=== PATIENT | male | born 1950 ===

== ENCOUNTER 2016-07-21 16:34 | Emergency (ER) | payer BC, MEDICARE ==
[2016-07-21] MEDS ORDERED: KETOROLAC 60 MG/2 ML VIAL IM STA (17:13)
[2016-07-21] MEDS ORDERED: HYDROmorphone 1 MG/ML 1 ML SYRINGE IM STA (17:15)
--- NOTE | 2016-07-21 17:18 | ED ---
Back Pain HPI - General Chief Complaint: Back Pain/Injury Stated Complaint: Altered Mental Status Time Seen by Provider: 07/21/16 17:04 Source: patient Limitations: no limitations - History of Present Illness Initial Comments: Patient was at his pain management doctor's office today and he fell he denies any head injury he denies any other injury to the upper or lower extremities he does have a chronic back pain and now Dr. mathews has been managing his pain. There was some dosage adjustment of his pain medication which is not quite adequately helping his pain this is according to the patient. He denies any chest pain no shortness of breath he is alert oriented he has been drinking today to manage his pain with the alcohol he denies any weakness of upper or lower extremity denies any loss of bladder or bowel control area of system is a part for back pain is negative. He does have a history of TIA or CVAs and history of chest pain - Related Data Home Medications Medication Instructions Recorded Confirmed DULoxetine HCL [Cymbalta] 30 mg PO BID 07/30/14 07/21/16 Gabapentin [Neurontin] 300 mg PO BID@0800,1200 07/30/14 07/21/16 levETIRAcetam 1,500 mg PO BID 07/30/14 07/21/16 metFORMIN HCL [Glucophage] 250 mg PO DAILY 07/30/14 07/21/16 Dipyridamole-Aspirin 200-25 mg 1 tab PO BID 07/01/15 07/21/16 [Aggrenox 25MG -200MG] Hydrocodone/Acetaminophen 1 tab PO TID PRN 07/01/15 07/21/16 [Hydrocodon-Acetaminophn 10-325] Docusate [Colace] 200 mg PO HS 05/31/16 07/21/16 Gabapentin [Neurontin] 600 mg PO HS 05/31/16 07/21/16 [place]-3 Fatty Acids/Fish Oil [Fish 1 cap PO TID 05/31/16 07/21/16 Oil 1,000 mg Softgel] Potassium Gluconate 99 mg PO DAILY 05/31/16 07/21/16 traMADol HCL [Ultram] 50 mg PO Q8H PRN 07/21/16 07/21/16 Allergies Allergy/AdvReac Type Severity Reaction Status Date / Time No Known Allergies Allergy Verified 07/21/16 17:27 Review of Systems ROS Statement: Those systems with pertinent positive or pertinent negative responses have been documented in the HPI. ROS Other: All systems not noted in ROS Statement are negative. Past Medical History Past Medical History: CVA/TIA, Diabetes Mellitus, GERD/Reflux Additional Past Medical History / Comment(s): HX OF CVA WITH LEFT ARM WEAKNESS, HX OF TIA'S. STATES HE HAS NO HX OF SEIZURES BUT THEY STARTED HIM ON SEIZURE MEDS., CONSTIPATION. History of Any Multi-Drug Resistant Organisms: None Reported Past Surgical History: Back Surgery Additional Past Surgical History / Comment(s): BACK SURGERY WITH PINS. Past Psychological History: No Psychological Hx Reported, Depression Smoking Status: Current every day smoker Past Alcohol Use History: None Reported Additional Past Alcohol Use History / Comment(s): STATES 1 SHOT TEQUILA IN AM AND A GLASS OF WINE AT NIGHT. SMOKES 1-2 CIGARS DAILY. Past Drug Use History: Marijuana Additional Drug Use History / Comment(s): MEDICAL MARIJUANA DAILY. - Past Family History Mother Family Medical History: CVA/TIA, Diabetes Mellitus Father Family Medical History: Diabetes Mellitus, Myocardial Infarction ([place]) General Exam - General Exam Comments Initial Comments: General: The patient is awake and alert, in no severe distress from his back pain actually is crying with the pain in his back Skin: Skin is warm and dry and no rashes or lesions are noted. Eye: Pupils are equal, round and reactive to light, extra-ocular movements are intact; there is normal conjunctiva bilaterally. Ears, nose, mouth and throat: There are moist mucous membranes and no oral lesions. Neck: The neck is supple, there is no tenderness or JVD. Cardiovascular: There is a regular rate and rhythm. No murmur, rub or gallop is appreciated. Respiratory: To auscultation bilateral, no wheezing no rhonchi no distress respiratory teixeira noticed Gastrointestinal: Soft, non-distended, non-tender abdomen without masses or organomegaly noted. There is no rebound or guarding present. Bowel sounds are unremarkable. Back: There is tenderness in the lower lumbar region, he said it's chronic Musculoskeletal: Normal ROM, no tenderness, There is no pedal edema. There is no calf tenderness or swelling. No cords were appreciated. Neurological: CN II-XII intact, Cranial nerves III through XII are intact. There are no obvious motor or sensory deficits. Coordination appears grossly intact. Speech is normal. Psychiatric: Cooperative, appropriate mood & affect, normal judgment. He denies any suicidal or homicidal ideation Limitations: no limitations Course Vital Signs 07/21/16 16:42 Temperature 97.8 F Pulse Rate 78 Respiratory 20 Rate Blood Pressure 120/68 O2 Sat by Pulse 98 Oximetry At 1850 on his labs were reviewed, his head CT is normal CBC is normal, BS metabolic panel is normal ALT and AST are slightly elevated head CT is normal and does show some sinusitis Medical Decision Making - Lab Data Result diagrams: 07/21/16 17:25 07/21/16 17:25 Lab Results 07/21/16 07/21/16 Range/Units 17:25 17:25 WBC 7.5 (3.8-10.6) k/uL RBC 4.96 (4.30-5.90) m/uL Hgb 15.0 (13.0-17.5) gm/dL Hct 44.7 (39.0-53.0) % MCV 90.2 (80.0-100.0) fL MCH 30.1 (25.0-35.0) pg MCHC 33.4 (31.0-37.0) g/dL RDW 13.4 (11.5-15.5) % Plt Count 303 (150-450) k/uL Neutrophils % 50 % Lymphocytes % 38 % Monocytes % 5 % Eosinophils % 2 % Basophils % 1 % Neutrophils # 3.8 (1.3-7.7) k/uL Lymphocytes # 2.8 (1.0-4.8) k/uL Monocytes # 0.4 (0-1.0) k/uL Eosinophils # 0.2 (0-0.7) k/uL Basophils # 0.0 (0-0.2) k/uL Sodium 142 (137-145) mmol/L Potassium 4.2 (3.5-5.1) mmol/L Chloride 103 (98-107) mmol/L Carbon Dioxide 21 L (22-30) mmol/L Anion Gap 18 mmol/L BUN 13 (9-20) mg/dL Creatinine 0.66 (0.66-1.25) mg/dL Est GFR (MDRD) Af Amer >60 (>60 ml/min/1.73 sqM) Est GFR (MDRD) Non-Af >60 (>60 ml/min/1.73 sqM) Glucose 199 H (74-99) mg/dL Calcium 9.4 (8.4-10.2) mg/dL Total Bilirubin 0.5 (0.2-1.3) mg/dL AST 85 H (17-59) U/L ALT 138 H (21-72) U/L Alkaline Phosphatase 89 (38-126) U/L Total Protein 7.8 (6.3-8.2) g/dL Albumin 4.7 (3.5-5.0) g/dL Disposition Clinical Impression: Chronic back pain Disposition: HOME SELF-CARE Instructions: Chronic Back Pain (ED) Additional Instructions: He is advised to follow with the primary care physician for chronic pain management, advised he could take Tylenol 1 g by mouth every 6 or Advil for and milligrams every 6 and milligrams by mouth 3 times a day as needed
[2016-07-21] MEDS ORDERED: HYDROmorphone 1 MG/ML 1 ML SYRINGE IVP STA (17:32)
[2016-07-21] MEDS ORDERED: KETOROLAC 30 MG/ML 1 ML VIAL IVP STA (17:33)
[2016-07-21 17:36] LABS: Basophils % (A) 1 %; CH 30.6; CHCM 34.1; Eosinophils # (A) 0.2 k/uL (0-0.7); Eosinophils % (A) 2 %; HCT 44.7 % (39.0-53.0); Luc # (Auto) 0.27; Luc % (Auto) 4; Lymphocytes # (A) 2.8 k/uL (1.0-4.8); Lymphocytes % (A) 38 %; MCH 30.1 pg (25.0-35.0); MCHC 33.4 g/dL (31.0-37.0); MCV 90.2 fL (80.0-100.0); Mean Platelet Volume 6.3; Monocytes # (A) 0.4 k/uL (0-1.0); Monocytes % (A) 5 %; Neutrophils # (A) 3.8 k/uL (1.3-7.7); Neutrophils % (A) 50 %; RBC 4.96 m/uL (4.30-5.90); RDW 13.4 % (11.5-15.5); WBC 7.5 k/uL (3.8-10.6); WBC (Perox) 7.68
[2016-07-21 17:55] LABS: ALT 138 U/L (21-72); AST 85 U/L (17-59); Alkaline Phosphatase 89 U/L (38-126); Anion Gap 18 mmol/L; Blood Urea Nitrogen 13 mg/dL (9-20); Calcium 9.4 mg/dL (8.4-10.2); Carbon Dioxide 21 mmol/L (22-30); Chloride 103 mmol/L (98-107); Glucose 199 mg/dL (74-99); Non-African American GFR(MDRD) >60 (>60 ml/min/1.73 sqM); Potassium 4.2 mmol/L (3.5-5.1); Sodium 142 mmol/L (137-145); Total Bilirubin 0.5 mg/dL (0.2-1.3); Total Protein 7.8 g/dL (6.3-8.2)
--- NOTE | 2016-07-21 18:24 | CT ---
EXAMINATION TYPE: CT brain wo con DATE OF EXAM: 07/21/2016 5:53 PM COMPARISON: June 02, 2016 HISTORY: Pain CT DLP: 1163 mGycm Automated exposure control for dose reduction was used. FINDINGS: There is no acute intracranial hemorrhage, mass effect, or midline shift identified. The ventricles and sulci are within normal limits in size. There are mild inflammatory changes seen within the bilateral maxillary sinuses, ethmoid sinuses, and frontal sinuses and mastoid sinus air cells and middle ear cavities are clear bilaterally. Sphenoid sinuses clear. IMPRESSION: NO ACUTE INTRACRANIAL PROCESS. MILD INFLAMMATORY CHANGES WITHIN THE MAXILLARY, ETHMOID, AND FRONTAL SINUSES.
--- NOTE | 2016-07-21 18:59 | XR ---
EXAMINATION TYPE: XR lumbar spine 2 or 3V DATE OF EXAM: 07/21/2016 6:00 PM COMPARISON: 12/25/2009 HISTORY: Back pain for months TECHNIQUE: 3 views FINDINGS: Negative for fracture or malalignment or acute process. Orthopedic hardware appears intact at the lumbosacral junction. Multilevel moderate degenerative facet osteoarthritis changes are apprec iated with multifocal mild and moderate degenerative disc changes noted. IMPRESSION: No acute radiographic process, with overall similar radiographic appearance when compared to the prior study. However, mild progression of the degenerative spondylosis changes appreciated.
[2016-07-21 19:03] VITALS: BP 113/67; PULSE 72; RESP 18; TEMP 97.4
== END 2016-07-21 19:03 | disposition home or self-care (01) ==
LOC: EC 16:34 → SUPCPDRO 16:34 → EC 19:03
DX: G89.29 Other chronic pain (principal); M54.9 Dorsalgia, unspecified; F32.9 Major depressive disorder, single episode, unspecified; E11.9 Type 2 diabetes mellitus without complications; R07.9 Chest pain, unspecified; Z86.73 Personal history of transient ischemic attack (TIA), and cerebral infarction without residual deficits; F12.90 Cannabis use, unspecified, uncomplicated; K59.00 Constipation, unspecified; K21.9 Gastro-esophageal reflux disease without esophagitis; F17.200 Nicotine dependence, unspecified, uncomplicated; Z79.84 Long term (current) use of oral hypoglycemic drugs; Z79.82 Long term (current) use of aspirin; W19.XXXA Unspecified fall, initial encounter
CPT/HCPCS: 82075; 36415; 80053; 85025; 72100; 70450; 96374; 96375; 99284; J1885; J1170

== ENCOUNTER → 2016-09-21 | Outpatient (CLI) | payer BC, MEDICARE ==
[2016-09-21 18:22] LABS: Blood Urea Nitrogen 23 mg/dL (9-20); Non-African American GFR(MDRD) >60 (>60 ml/min/1.73 sqM)
--- NOTE | 2016-09-21 21:55 | MR ---
EXAMINATION TYPE: MR lumbar spine wo/w con DATE OF EXAM: 09/21/2016 7:42 PM COMPARISON: 08/05/2015 HISTORY: 65-year-old male with low back pain Technique: Multiplanar, multisequence images of the lumbar spine were obtained before and after admin istration of 20 mL intravenous MultiHance gadolinium contrast. FINDINGS: Vertebral body heights are preserved and alignment is maintained. No suspicious bone marrow replacement. Postsurgical changes of anterior lumbar fusion at L5-S1. There is minimal posterior bulging disc at t his level, unchanged from prior. Minimal desiccation of the L4-L5 intervertebral disc without additional focal disc herniation. Multilevel facet degenerative change may have slightly progressed from prior exam with ligamentum fla vum thickening mid to lower lumbar spine. Conus medullaris is normal. 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 From T12 through L3 levels, no spinal canal or neuroforaminal stenosis. At L3-L4, mild facet degenerative change without spinal canal or neuroforaminal stenosis. At L4-L5, there is facet degenerative change causing minimal inferior right and mild left neuroforami nal narrowing, not significantly changed. At L5-S1, mild bulging disc and facet degenerative change with similar mild right and [id number] e left neuroforaminal stenosis. No spinal canal stenosis. No suspicious enhancement within the spinal canal. No prevertebral or paravertebral soft tissue abnormality. IMPRESSION: 1. Uncomplicated appearance to the L5-S1 anterior lumbar fusion. 2. Multilevel facet arthropathy appears to have slightly progressed from prior exam. There is also a component of mild congenital spinal canal narrowing in the mid lumbar spine. No charity canal compromis e. 3. At L5-S1, there is relatively similar mild right and [id number] left neuroforaminal stenosis .
== END | disposition home or self-care (01) ==
LOC: RADMRIMAIN 17:49
PROVIDERS: ATTEND Psychiatry & Neurology Neurology
DX: M99.73 Connective tissue and disc stenosis of intervertebral foramina of lumbar region (principal); M46.96 Unspecified inflammatory spondylopathy, lumbar region; Z98.1 Arthrodesis status
CPT/HCPCS: 82565; 84520; 72158; A9577

== ENCOUNTER 2016-12-10 15:19 | Emergency (ER) | payer BC, MEDICARE ==
[2016-12-10 15:39] VITALS: BP 120/79; PULSE 84; RESP 18; TEMP 98.5
--- NOTE | 2016-12-10 16:11 | ED ---
General Adult HPI - General Chief complaint: Eye Problems Stated complaint: Eye Problem Time Seen by Provider: 12/10/16 15:45 Source: patient, family, RN notes reviewed Mode of arrival: ambulatory Limitations: no limitations - History of Present Illness Initial comments: Patient is a pleasant 66-year-old male presenting to the emergency department complaining of discomfort of his lower eyelids. Symptoms have been present for a few weeks. Patient did see his doctor and was on antibiotics once daily for 5 days. Patient did not take 2 pills in the first day however they are unclear what the antibiotic was. Patient also saw the eye doctor. Patient has been on several different eyedrops including steroids. Patient states his eyes do not hurt. Patient denies any change in vision. Patient states discomfort is somewhat severe however does not want any pain medicine because he has a pain contract. Patient does have redness of his lower eyelids. This has been persistent. Patient is scheduled to see an program eligibility specialist. 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 - Related Data Home Medications Medication Instructions Recorded Confirmed DULoxetine HCL [Cymbalta] 30 mg PO BID 07/30/14 07/21/16 Gabapentin [Neurontin] 300 mg PO BID@0800,1200 07/30/14 07/21/16 levETIRAcetam 1,500 mg PO BID 07/30/14 07/21/16 metFORMIN HCL [Glucophage] 250 mg PO DAILY 07/30/14 07/21/16 Dipyridamole-Aspirin 200-25 mg 1 tab PO BID 07/01/15 07/21/16 [Aggrenox 25MG -200MG] Hydrocodone/Acetaminophen 1 tab PO TID PRN 07/01/15 07/21/16 [Hydrocodon-Acetaminophn 10-325] Docusate [Colace] 200 mg PO HS 05/31/16 07/21/16 Lansoprazole [Prevacid] 15 mg PO DAILY 12/10/16 12/10/16 Pravastatin Sodium [Pravachol] 20 mg PO DAILY 12/10/16 12/10/16 Previous Rx's Medication Instructions Recorded Sulfamethox-Tmp 800-160Mg [Bactrim 2 each PO Q12HR #40 tab 12/10/16 DS 800-160 mg] Allergies Allergy/AdvReac Type Severity Reaction Status Date / Time No Known Allergies Allergy Verified 12/10/16 15:39 Review of Systems ROS Statement: Those systems with pertinent positive or pertinent negative responses have been documented in the HPI. ROS Other: All systems not noted in ROS Statement are negative. Constitutional: Denies: fever, chills Eyes: Denies: eye pain (Pain is below the eye, in the eyelids) ENT: Denies: ear pain Respiratory: Denies: cough Cardiovascular: Denies: palpitations Endocrine: Denies: fatigue Gastrointestinal: Denies: abdominal pain Genitourinary: Denies: dysuria Musculoskeletal: Denies: back pain Skin: Reports: rash Neurological: Denies: weakness Past Medical History Past Medical History: CVA/TIA, Diabetes Mellitus, GERD/Reflux Additional Past Medical History / Comment(s): HX OF CVA WITH LEFT ARM WEAKNESS, HX OF TIA'S. STATES HE HAS NO HX OF SEIZURES BUT THEY STARTED HIM ON SEIZURE MEDS., CONSTIPATION. History of Any Multi-Drug Resistant Organisms: None Reported Past Surgical History: Back Surgery Additional Past Surgical History / Comment(s): BACK SURGERY WITH PINS. Past Psychological History: Depression Smoking Status: Former smoker Past Alcohol Use History: None Reported Past Drug Use History: Marijuana - Past Family History Mother Family Medical History: CVA/TIA, Diabetes Mellitus Father Family Medical History: Diabetes Mellitus, Myocardial Infarction ([place]) General Exam Limitations: no limitations General appearance: alert, in no apparent distress Head exam: Present: atraumatic Eye exam: Present: PERRL, EOMI (No pain with eye movement), other (Mild subconjunctival hemorrhage left lower eye. Flurosyn stain without uptake bilaterally.) ENT exam: Present: normal oropharynx Neck exam: Present: normal inspection Respiratory exam: Present: normal lung sounds bilaterally Cardiovascular Exam: Present: regular rate, normal rhythm Extremities exam: Present: normal inspection Neurological exam: Present: alert, CN II-XII intact Psychiatric exam: Present: normal affect, normal mood Skin exam: Present: other (Bilateral lower eyelids with erythema and mild swelling. This extends somewhat to the upper maxillary region. Left lower eyelid does have a tiny pustule. ) Course Vital Signs 12/10/16 15:36 Temperature 98.5 F Pulse Rate 84 Respiratory 18 Rate Blood Pressure 120/79 O2 Sat by Pulse 97 Oximetry Procedures - Procedures Initial comment: Verbal consent given: Left eyelid pustule opened with 25-gauge needle. Mild purulent drainage is obtained. Culture sent to lab. There is another near pustular lesion on the right lower eyelid there was also attempted to open with 25-gauge needle that was unsuccessful. No complication. Medical Decision Making - Medical Decision Making Patient is updated if pustules recur they can be opened. Patient is advised to follow-up with his doctor Monday for culture results and further evaluation. Patient also is advised to follow-up with ophthalmology again. Patient is also advised if symptoms worsen or start going around the eye that he may need IV antibiotics. Disposition Clinical Impression: Facial cellulitis Disposition: HOME SELF-CARE Condition: Stable Instructions: Cellulitis (ED) Additional Instructions: Please follow-up with your doctor and cloud subject matter expert on Monday. Please have them check culture results from today. Return for fevers, increased swelling, increased pain, increased redness, rash going around the eyes, pain with eye movement, worsening symptoms or any other concerns. Prescriptions: Sulfamethox-Tmp 800-160Mg [Bactrim DS 800-160 mg] 2 each PO Q12HR #40 tab Referrals: Hussein Early MD [Primary Care Provider] - 1-2 days Time of Disposition: 16:11
== END 2016-12-10 16:21 | disposition home or self-care (01) ==
LOC: EC 15:19
DX: L03.211 Cellulitis of face (principal); L08.9 Local infection of the skin and subcutaneous tissue, unspecified; H11.32 Conjunctival hemorrhage, left eye; K21.9 Gastro-esophageal reflux disease without esophagitis; E11.9 Type 2 diabetes mellitus without complications; F32.9 Major depressive disorder, single episode, unspecified; Z86.73 Personal history of transient ischemic attack (TIA), and cerebral infarction without residual deficits; Z87.891 Personal history of nicotine dependence; Z79.84 Long term (current) use of oral hypoglycemic drugs; Z79.899 Other long term (current) drug therapy
CPT/HCPCS: 67700; 87070; 87205; 99283

== ENCOUNTER 2017-03-02 20:16 | Emergency (ER) | payer BC, MEDICARE ==
[2017-03-02 20:28] LABS: Glucose,Whole Blood 167 mg/dL (75-99)
[2017-03-02 20:44] LABS: Basophils # (A) 0.1 k/uL (0-0.2); Basophils % (A) 1 %; CH 30.4; CHCM 34.6; Eosinophils # (A) 0.2 k/uL (0-0.7); Eosinophils % (A) 2 %; HCT 39.2 % (39.0-53.0); Luc # (Auto) 0.11; Luc % (Auto) 1; Lymphocytes % (A) 33 %; MCH 29.3 pg (25.0-35.0); MCHC 33.2 g/dL (31.0-37.0); MCV 88.3 fL (80.0-100.0); Monocytes # (A) 0.5 k/uL (0-1.0); Monocytes % (A) 6 %; Neutrophils # (A) 5.3 k/uL (1.3-7.7); Neutrophils % (A) 58 %; RBC 4.44 m/uL (4.30-5.90); RDW 14.3 % (11.5-15.5); WBC 9.2 k/uL (3.8-10.6)
[2017-03-02 20:50] LABS: Appearance,Urine Clear (Clear); Bilirubin,Urine Negative (Negative); Glucose,Urine (UA) Negative (Negative); Ketones,Urine Negative (Negative); Leukocyte Esterase,Urine Negative (Negative); Nitrite,Urine Negative (Negative); Protein,Urine Negative (Negative); Specific Gravity,Urine 1.002 (1.001-1.035); UA Billing (MACRO vs. MICRO) CHEM; Urobilinogen,Urine <2.0 mg/dL (<2.0)
[2017-03-02 20:55] LABS: Partial Thromboplastin Time 25.2 sec (22.0-30.0); Prothrombin Time 10.6 sec (9.0-12.0)
[2017-03-02 20:58] LABS: ALT 46 U/L (21-72); AST 27 U/L (17-59); Alkaline Phosphatase 78 U/L (38-126); Anion Gap 12 mmol/L; Blood Urea Nitrogen 24 mg/dL (9-20); Calcium 9.2 mg/dL (8.4-10.2); Carbon Dioxide 22 mmol/L (22-30); Chloride 108 mmol/L (98-107); Glucose 187 mg/dL (74-99); Magnesium 1.8 mg/dL (1.6-2.3); Non-African American GFR(MDRD) >60 (>60 ml/min/1.73 sqM); Potassium 3.4 mmol/L (3.5-5.1); Sodium 142 mmol/L (137-145); Total Bilirubin 0.4 mg/dL (0.2-1.3); Total Protein 7.1 g/dL (6.3-8.2)
[2017-03-02 21:02] LABS: Creatine Kinase 154 U/L (55-170)
--- NOTE | 2017-03-02 21:02 | XR ---
EXAMINATION TYPE: XR chest 2V DATE OF EXAM: 03/02/2017 COMPARISON: 05/31/2016 HISTORY: Chest pain TECHNIQUE: Frontal and lateral views of the chest are obtained. FINDINGS: Heart and mediastinum are within normal limits. Lungs are clear. There is no pleural effus ion. There is no heart failure. There are chest leads. Bony thorax appears intact. IMPRESSION: No active cardiopulmonary disease. No change.
[2017-03-02 21:15] LABS: Creatine Kinase MB 1.3 ng/mL (0.0-2.4); Troponin I <0.012 ng/mL (0.000-0.034)
[2017-03-02] MEDS ORDERED: ASPIRIN 81 MG PO STA (21:16)
--- NOTE | 2017-03-02 21:20 | ED ---
Chest Pain HPI - General Chief Complaint: Chest Pain Stated Complaint: chest pain Time Seen by Provider: 03/02/17 21:07 Source: patient Mode of arrival: ambulatory Limitations: altered mental status - History of Present Illness Initial Comments: This patient is 66-year-old man who presents to be evaluated with a constellation of symptoms. Patient states that for 3 weeks he has been feeling a lot of generalized fatigue and weakness area and he states that when he gets out of bed he gets lightheaded. He has also been having episodes of nausea and vomiting. He states that with the lightheadedness he has had some episodes of stumbling and had fallen though not today. The patient denies trauma related to the fall. Patient states that throughout today he has been having substernal pain that he cannot characterize well. He is able indicate that the pain is moderate, constant but has not noted any worsening or relieving factors. He denies any associated symptoms other than the nausea and vomiting but that is been going on intermittently for 3 weeks now. MD Complaint: chest pain Onset/Timin -: days(s) Onset: during rest Pain Location: substernal Pain Radiation: none Severity: moderate Quality: other (Unable to characterize the pain well other than stating that it hurts) Consistency: constant Improves With: nothing Worsens With: nothing Anginal Symptoms: nausea, vomiting Treatments Prior to Arrival: none - Related Data Home Medications Medication Instructions Recorded Confirmed DULoxetine HCL [Cymbalta] 30 mg PO BID 07/30/14 03/02/17 Gabapentin [Neurontin] 600 mg PO HS 07/30/14 03/02/17 levETIRAcetam 1,500 mg PO BID 07/30/14 03/02/17 metFORMIN HCL [Glucophage] 250 mg PO BID 07/30/14 03/02/17 Dipyridamole-Aspirin 200-25 mg 1 tab PO BID 07/01/15 03/02/17 [Aggrenox 25MG -200MG] Hydrocodone/Acetaminophen 1 tab PO TID PRN 07/01/15 03/02/17 [Hydrocodon-Acetaminophn 10-325] Docusate [Colace] 200 mg PO HS 05/31/16 03/02/17 Lansoprazole [Prevacid] 15 mg PO DAILY 12/10/16 03/02/17 Pravastatin Sodium [Pravachol] 20 mg PO DAILY 12/10/16 03/02/17 Allergies Allergy/AdvReac Type Severity Reaction Status Date / Time No Known Allergies Allergy Verified 03/02/17 21:22 Review of Systems ROS Statement: Those systems with pertinent positive or pertinent negative responses have been documented in the HPI. ROS Other: All systems not noted in ROS Statement are negative. Constitutional: Reports: weakness (Generalized). Denies: fever, chills Eyes: Denies: vision change Respiratory: Denies: cough, dyspnea, wheezes Cardiovascular: Reports: chest pain. Denies: palpitations, dyspnea on exertion , orthopnea, edema, syncope Endocrine: Reports: fatigue Gastrointestinal: Reports: nausea, vomiting. Denies: abdominal pain, diarrhea, constipation Genitourinary: Denies: dysuria, hematuria Musculoskeletal: Denies: back pain Skin: Denies: rash Neurological: Denies: headache, weakness, numbness EKG Findings - EKG Results: EKG: interpreted by VIRGINIA CARRILLO, sinus rhythm (Rate 77 bpm), normal axis, normal QRS, normal ST/T, no acute changes - [place], Pacemaker, Normal: Normal tracing: normal tracing Past Medical History Past Medical History: CVA/TIA, Diabetes Mellitus, GERD/Reflux Additional Past Medical History / Comment(s): HX OF CVA WITH LEFT ARM WEAKNESS, HX OF TIA'S. STATES HE HAS NO HX OF SEIZURES BUT THEY STARTED HIM ON SEIZURE MEDS., CONSTIPATION. History of Any Multi-Drug Resistant Organisms: None Reported Past Surgical History: Back Surgery Additional Past Surgical History / Comment(s): BACK SURGERY WITH PINS. Past Psychological History: Depression Smoking Status: Former smoker Past Alcohol Use History: None Reported Past Drug Use History: Marijuana - Past Family History Mother Family Medical History: CVA/TIA, Diabetes Mellitus Father Family Medical History: Diabetes Mellitus, Myocardial Infarction ([place]) General Exam Limitations: altered mental status Course Vital Signs 03/02/17 03/02/17 03/02/17 20:23 21:28 22:00 Temperature 99.3 F Pulse Rate 76 62 58 L Respiratory 16 20 20 Rate Blood Pressure 134/81 134/71 126/77 O2 Sat by Pulse 95 98 98 Oximetry Disposition Clinical Impression: Chest pain Disposition: Left Against Medical Advice Condition: Undetermined Instructions: Chest Pain (ED) Referrals: Hussein Early MD [Primary Care Provider] - 1-2 days Skaf,Masood, MD [STAFF PHYSICIAN] - 1-2 days
[2017-03-02 23:11] VITALS: BP 141/83; PULSE 66; RESP 18; TEMP 98
== END 2017-03-02 23:15 | disposition left against medical advice (07) ==
LOC: EC 20:16
DX: R07.9 Chest pain, unspecified (principal); R53.1 Weakness; R11.2 Nausea with vomiting, unspecified; R41.82 Altered mental status, unspecified; F32.9 Major depressive disorder, single episode, unspecified; I10 Essential (primary) hypertension; E11.9 Type 2 diabetes mellitus without complications; K21.9 Gastro-esophageal reflux disease without esophagitis; Z53.29 Procedure and treatment not carried out because of patient's decision for other reasons; Z86.73 Personal history of transient ischemic attack (TIA), and cerebral infarction without residual deficits; Z79.82 Long term (current) use of aspirin; Z79.84 Long term (current) use of oral hypoglycemic drugs; Z79.899 Other long term (current) drug therapy; Z87.891 Personal history of nicotine dependence
CPT/HCPCS: 36415; 71020; 80053; 80320; 81003; 82550; 82553; 83735; 84484; 85025; 85610; 85730; 93005; 99285

== ENCOUNTER → 2017-04-04 | Outpatient (CLI) | payer BC, MEDICARE ==
[2017-04-04 13:16] LABS: CH 29.3; CHCM 32.9; HCT 41.1 % (39.0-53.0); HDW 2.83; HGB 13.4 gm/dL (13.0-17.5); MCH 29.1 pg (25.0-35.0); MCHC 32.5 g/dL (31.0-37.0); MCV 89.6 fL (80.0-100.0); Mean Platelet Volume 6.5; RBC 4.59 m/uL (4.30-5.90); RDW 12.9 % (11.5-15.5)
[2017-04-04 13:26] LABS: Anion Gap 10 mmol/L; Blood Urea Nitrogen 22 mg/dL (9-20); Carbon Dioxide 26 mmol/L (22-30); Chloride 102 mmol/L (98-107); Non-African American GFR(MDRD) >60 (>60 ml/min/1.73 sqM); Potassium 4.5 mmol/L (3.5-5.1); Sodium 138 mmol/L (137-145)
== END | disposition home or self-care (01) ==
LOC: LABPAT 12:39
PROVIDERS: ATTEND Internal Medicine Interventional Cardiology
DX: Z01.812 Encounter for preprocedural laboratory examination (principal); R07.89 Other chest pain
CPT/HCPCS: 36415; 80051; 82565; 84520; 85027

== ENCOUNTER 2017-12-28 13:17 | Emergency (ER) | payer BC, MEDICARE ==
--- NOTE | 2017-12-28 13:49 | ED ---
General Adult HPI - General Chief complaint: Chest Pain Stated complaint: Chest Pain Time Seen by Provider: 12/28/17 13:35 Source: patient, RN notes reviewed, old records reviewed Mode of arrival: wheelchair Limitations: no limitations - History of Present Illness Initial comments: This is a 67-year-old male the ER for evaluation. States presenting for evaluation regards to multiple nonspecific complaints erythema from headache. Episodic nausea vomiting chest pain to not feeling well. Patient states he has medical history of TIA, medical issues, sec with vomiting issue. Patient does have symptoms going on for 2 years. Patient does admit to positive marijuana use, he states he uses this time with his tingling and numbness. Patient has again no recent travel history or sick contacts or recent change in medications. Patient presents today because he had some symptoms while he was at work and felt very nauseous. Otherwise patient has no complaints of chest pain or bowel pain currently, mild headache - Related Data Home Medications Medication Instructions Recorded Confirmed Gabapentin [Neurontin] 600 mg PO HS 07/30/14 12/28/17 metFORMIN HCL [Glucophage] 250 mg PO BID 07/30/14 12/28/17 Dipyridamole-Aspirin 200-25 mg 1 tab PO BID 07/01/15 12/28/17 [Aggrenox 25MG -200MG] Hydrocodone/Acetaminophen 1 tab PO TID PRN 07/01/15 12/28/17 [Hydrocodon-Acetaminophn 10-325] Docusate [Colace] 200 mg PO HS 05/31/16 12/28/17 Lansoprazole [Prevacid] 15 mg PO DAILY 12/10/16 12/28/17 DULoxetine HCL [Cymbalta] 60 mg PO DAILY 12/28/17 12/28/17 [place]-3 Fatty Acids/Fish Oil [Fish 1 cap PO DAILY 12/28/17 12/28/17 Oil 1,000 mg Softgel] Potassium Gluconate 99 mg PO DAILY 12/28/17 12/28/17 levETIRAcetam [Keppra] 500 mg PO Q12HR 12/28/17 12/28/17 Previous Rx's Medication Instructions Recorded Ondansetron Odt [Zofran ODT] 4 mg PO Q8HR PRN #30 tab 12/28/17 Pantoprazole Sodium [Protonix] 40 mg PO DAILY #30 tablet. 12/28/17 Allergies Allergy/AdvReac Type Severity Reaction Status Date / Time No Known Allergies Allergy Verified 12/28/17 13:45 Review of Systems ROS Statement: Those systems with pertinent positive or pertinent negative responses have been documented in the HPI. ROS Other: All systems not noted in ROS Statement are negative. Past Medical History Past Medical History: CVA/TIA, Diabetes Mellitus, GERD/Reflux Additional Past Medical History / Comment(s): HX OF CVA WITH LEFT ARM WEAKNESS, HX OF TIA'S. STATES HE HAS NO HX OF SEIZURES BUT THEY STARTED HIM ON SEIZURE MEDS., CONSTIPATION. History of Any Multi-Drug Resistant Organisms: None Reported Past Surgical History: Back Surgery Additional Past Surgical History / Comment(s): BACK SURGERY WITH PINS. Past Psychological History: Depression Smoking Status: Former smoker Past Alcohol Use History: None Reported Past Drug Use History: Marijuana - Past Family History Mother Family Medical History: CVA/TIA, Diabetes Mellitus Father Family Medical History: Diabetes Mellitus, Myocardial Infarction ([place]) General Exam Limitations: no limitations General appearance: alert, in no apparent distress Head exam: Present: atraumatic, normocephalic, normal inspection Eye exam: Present: normal appearance, PERRL, EOMI. Absent: scleral icterus, conjunctival injection, periorbital swelling ENT exam: Present: normal exam, mucous membranes moist Neck exam: Present: normal inspection. Absent: tenderness, meningismus, lymphadenopathy Respiratory exam: Present: normal lung sounds bilaterally. Absent: respiratory distress, wheezes, rales, rhonchi, stridor Cardiovascular Exam: Present: regular rate, normal rhythm, normal heart sounds. Absent: systolic murmur, diastolic murmur, rubs, gallop, clicks GI/Abdominal exam: Present: soft, normal bowel sounds. Absent: distended, tenderness, guarding, rebound, rigid Extremities exam: Present: normal inspection, full ROM, normal capillary refill. Absent: tenderness, pedal edema, joint swelling, calf tenderness Back exam: Present: normal inspection Neurological exam: Present: alert, oriented X3, CN II-XII intact Psychiatric exam: Present: normal affect, normal mood Skin exam: Present: warm, dry, intact, normal color. Absent: rash Course Vital Signs 12/28/17 12/28/17 12/28/17 13:23 14:53 16:07 Temperature 98.2 F 97.5 F L Pulse Rate 83 64 56 L Respiratory 18 18 16 Rate Blood Pressure 121/76 151/76 116/74 O2 Sat by Pulse 95 96 100 Oximetry - Reevaluation(s) Reevaluation #1: Discussed at length recreational marijuana use EKG Findings - EKG Comments: EKG Findings:: EKG shows normal sinus rhythm rate of 79, HI 176, QRS 88, QTc 417 Medical Decision Making - Medical Decision Making 67 male the ER with multiple nonspecific complaints, mainly resolving around persistent nausea vomiting and is occasional is been going on for 2 years. Patient has no acute findings today, no acute distress vital signs are normal and stable throughout ER stay. Patient can be discharged - Lab Data Result diagrams: 12/28/17 13:52 12/28/17 13:52 Lab Results 12/28/17 12/28/17 12/28/17 Range/Units 13:52 13:52 13:52 WBC 7.3 (3.8-10.6) k/uL RBC 4.80 (4.30-5.90) m/uL Hgb 14.2 (13.0-17.5) gm/dL Hct 41.6 (39.0-53.0) % MCV 86.8 (80.0-100.0) fL MCH 29.6 (25.0-35.0) pg MCHC 34.2 (31.0-37.0) g/dL RDW 13.5 (11.5-15.5) % Plt Count 236 (150-450) k/uL Neutrophils % 54 % Lymphocytes % 35 % Monocytes % 7 % Eosinophils % 3 % Basophils % 0 % Neutrophils # 3.9 (1.3-7.7) k/uL Lymphocytes # 2.5 (1.0-4.8) k/uL Monocytes # 0.5 (0-1.0) k/uL Eosinophils # 0.2 (0-0.7) k/uL Basophils # 0.0 (0-0.2) k/uL PT (9.0-12.0) sec INR (<1.2) APTT (22.0-30.0) sec Sodium 137 (137-145) mmol/L Potassium 3.9 (3.5-5.1) mmol/L Chloride 104 (98-107) mmol/L Carbon Dioxide 23 (22-30) mmol/L Anion Gap 10 mmol/L BUN 15 (9-20) mg/dL Creatinine 0.64 L (0.66-1.25) mg/dL Est GFR (CKD-EPI)AfAm >90 (>60 ml/min/1.73 sqM) Est GFR (CKD-EPI)NonAf >90 (>60 ml/min/1.73 sqM) Glucose 186 H (74-99) mg/dL Calcium 9.1 (8.4-10.2) mg/dL Magnesium 1.9 (1.6-2.3) mg/dL Total Bilirubin 0.6 (0.2-1.3) mg/dL AST 35 (17-59) U/L ALT 48 (21-72) U/L Alkaline Phosphatase 77 (38-126) U/L Total Creatine Kinase 185 H (55-170) U/L CK-MB (CK-2) 0.9 (0.0-2.4) ng/mL CK-MB (CK-2) Rel Index 0.5 Troponin I <0.012 (0.000-0.034) ng/mL Total Protein 6.9 (6.3-8.2) g/dL Albumin 4.3 (3.5-5.0) g/dL Lipase 24 (23-300) U/L Urine Opiates Screen (NotDetected) Ur Oxycodone Screen (NotDetected) Urine Methadone Screen (NotDetected) Ur Propoxyphene Screen (NotDetected) Ur Barbiturates Screen (NotDetected) U Tricyclic Antidepress (NotDetected) Ur Phencyclidine Scrn (NotDetected) Ur Amphetamines Screen (NotDetected) U Methamphetamines Scrn (NotDetected) U Benzodiazepines Scrn (NotDetected) Urine Cocaine Screen (NotDetected) U Marijuana (THC) Screen (NotDetected) 12/28/17 12/28/17 Range/Units 13:52 14:30 WBC (3.8-10.6) k/uL RBC (4.30-5.90) m/uL Hgb (13.0-17.5) gm/dL Hct (39.0-53.0) % MCV (80.0-100.0) fL MCH (25.0-35.0) pg MCHC (31.0-37.0) g/dL RDW (11.5-15.5) % Plt Count (150-450) k/uL Neutrophils % % Lymphocytes % % Monocytes % % Eosinophils % % Basophils % % Neutrophils # (1.3-7.7) k/uL Lymphocytes # (1.0-4.8) k/uL Monocytes # (0-1.0) k/uL Eosinophils # (0-0.7) k/uL Basophils # (0-0.2) k/uL PT 10.3 (9.0-12.0) sec INR 1.1 (<1.2) APTT 23.5 (22.0-30.0) sec Sodium (137-145) mmol/L Potassium (3.5-5.1) mmol/L Chloride (98-107) mmol/L Carbon Dioxide (22-30) mmol/L Anion Gap mmol/L BUN (9-20) mg/dL Creatinine (0.66-1.25) mg/dL Est GFR (CKD-EPI)AfAm (>60 ml/min/1.73 sqM) Est GFR (CKD-EPI)NonAf (>60 ml/min/1.73 sqM) Glucose (74-99) mg/dL Calcium (8.4-10.2) mg/dL Magnesium (1.6-2.3) mg/dL Total Bilirubin (0.2-1.3) mg/dL AST (17-59) U/L ALT (21-72) U/L Alkaline Phosphatase (38-126) U/L Total Creatine Kinase (55-170) U/L CK-MB (CK-2) (0.0-2.4) ng/mL CK-MB (CK-2) Rel Index Troponin I (0.000-0.034) ng/mL Total Protein (6.3-8.2) g/dL Albumin (3.5-5.0) g/dL Lipase (23-300) U/L Urine Opiates Screen Detected H (NotDetected) Ur Oxycodone Screen Not Detected (NotDetected) Urine Methadone Screen Not Detected (NotDetected) Ur Propoxyphene Screen Not Detected (NotDetected) Ur Barbiturates Screen Not Detected (NotDetected) U Tricyclic Antidepress Not Detected (NotDetected) Ur Phencyclidine Scrn Not Detected (NotDetected) Ur Amphetamines Screen Not Detected (NotDetected) U Methamphetamines Scrn Not Detected (NotDetected) U Benzodiazepines Scrn Not Detected (NotDetected) Urine Cocaine Screen Not Detected (NotDetected) U Marijuana (THC) Screen Detected H (NotDetected) - Radiology Data Radiology results: report reviewed (CT brain chest x-ray and ultrasound of gallbladder negative), image reviewed Disposition Clinical Impression: Chest pain, Pain, gastric, Nausea & vomiting Disposition: HOME SELF-CARE Condition: Good Instructions: Acute Nausea and Vomiting (ED), Abdominal Pain (ED) Prescriptions: Ondansetron Odt [Zofran ODT] 4 mg PO Q8HR PRN #30 tab PRN Reason: nausea/vomiting Pantoprazole Sodium [Protonix] 40 mg PO DAILY #30 tablet.dr Is patient prescribed a controlled substance at d/c from ED?: No Referrals: Hussein Early MD [Primary Care Provider] - 1-2 days
[2017-12-28 14:24] LABS: Basophils % (A) 0 %; Eosinophils # (A) 0.2 k/uL (0-0.7); Eosinophils % (A) 3 %; HCT 41.6 % (39.0-53.0); HGB 14.2 gm/dL (13.0-17.5); Lymphocytes # (A) 2.5 k/uL (1.0-4.8); Lymphocytes % (A) 35 %; MCH 29.6 pg (25.0-35.0); MCHC 34.2 g/dL (31.0-37.0); MCV 86.8 fL (80.0-100.0); Mean Platelet Volume 6.8; Monocytes # (A) 0.5 k/uL (0-1.0); Monocytes % (A) 7 %; Neutrophils # (A) 3.9 k/uL (1.3-7.7); Neutrophils % (A) 54 %; Platelet Count 236 k/uL (150-450); RDW 13.5 % (11.5-15.5); WBC 7.3 k/uL (3.8-10.6)
[2017-12-28 14:35] LABS: ALT 48 U/L (21-72); AST 35 U/L (17-59); Albumin 4.3 g/dL (3.5-5.0); Alkaline Phosphatase 77 U/L (38-126); Anion Gap 10 mmol/L; Blood Urea Nitrogen 15 mg/dL (9-20); Calcium 9.1 mg/dL (8.4-10.2); Carbon Dioxide 23 mmol/L (22-30); Chloride 104 mmol/L (98-107); Glucose 186 mg/dL (74-99); Lipase 24 U/L (23-300); Magnesium 1.9 mg/dL (1.6-2.3); Potassium 3.9 mmol/L (3.5-5.1); Sodium 137 mmol/L (137-145); Total Bilirubin 0.6 mg/dL (0.2-1.3); Total Protein 6.9 g/dL (6.3-8.2)
--- NOTE | 2017-12-28 14:40 | XR ---
EXAMINATION TYPE: XR chest 2V DATE OF EXAM: 12/28/2017 COMPARISON: 03/02/2017 HISTORY: Chest pain. TECHNIQUE: Frontal and lateral views of the chest are obtained. FINDINGS: There are low lung volumes. There is no focal air space opacity, pleural effusion, or pneu mothorax seen. The cardiac silhouette size is mildly enlarged, similar to the prior. The osseous s tructures are intact. Minimal degenerative changes of the thoracic spine are noted. IMPRESSION: No acute cardiopulmonary process.
--- NOTE | 2017-12-28 14:45 | CT ---
EXAMINATION TYPE: CT brain wo con DATE OF EXAM: 12/28/2017 COMPARISON: 07/21/2016 HISTORY: 67-year-old male left side weakness. History CVA x 2 TECHNIQUE: Examination was done in axial plane without intravenous contrast. Coronal and sagittal r econstructions performed. CT DLP: 1064.3 mGycm Automated exposure control for dose reduction was used. FINDINGS: Anterior left frontal calvarial streak artifact. There is no evidence of acute intracranial hemorrha ge, acute ischemic changes, mass, mass-effect, or extra-axial fluid collection. There is no effaceme nt of cerebral sulci or basal subarachnoid cisterns. There is no hydrocephalus. There is no midline shift. Marcum-white matter distinction is preserved. Mild mucosal thickening ethmoid air cells. The right maxillary sinus is now clear. Stable mucosal ret ention cysts or polyps along the floor of the left maxillary sinus. Mastoid air cells well pneumatize d. Visualized portions of the orbits and globes appear intact. IMPRESSION: No acute intracranial abnormality seen.
[2017-12-28 14:48] LABS: Creatine Kinase 185 U/L (55-170)
[2017-12-28 14:49] LABS: INR 1.1 (<1.2); Partial Thromboplastin Time 23.5 sec (22.0-30.0); Prothrombin Time 10.3 sec (9.0-12.0)
[2017-12-28 15:02] LABS: Creatine Kinase MB 0.9 ng/mL (0.0-2.4); Troponin I <0.012 ng/mL (0.000-0.034)
[2017-12-28 15:09] LABS: Amphetamine Screen,Urine Not Detected (NotDetected); Barbiturate Screen,Urine Not Detected (NotDetected); Benzodiazepines Screen,Urine Not Detected (NotDetected); Cocaine Screen,Urine Not Detected (NotDetected); Methadone Screen, Urine Not Detected (NotDetected); Opiate Screen,Urine Detected (NotDetected); Oxycodone Screen, Urine Not Detected (NotDetected); Phencyclidine Screen,Urine Not Detected (NotDetected); Tricyclic Antidepressant,Urine Not Detected (NotDetected); Urn Cannabinoid Scrn Detected (NotDetected)
--- NOTE | 2017-12-28 15:33 | US ---
EXAMINATION TYPE: US gallbladder DATE OF EXAM: 12/28/2017 COMPARISON: NONE CLINICAL HISTORY: Pain. Patient sleeping during exam, explained chest pain, nausea, vomiting EXAM MEASUREMENTS: Liver Length: 19.5 cm Gallbladder Wall: 0.3 cm CBD: 0.5 cm Right Kidney: 10.7 x 4.2 x 5.0 cm Overlying bowel gas limits exam Pancreas: unable to view due to gas Liver: limited views of left lobe, right lobe done intercostally, enlarged and difficult to penetrat e. There is increased echogenicity of the hepatic parenchyma with diminished visualization of the por annemarie triads most commonly relating to hepatic steatosis and limiting evaluation for underlying hepatic masses. Gallbladder: wnl Evidence for sonographic Sorenson's sign: no CBD: wnl Right Kidney: wnl IMPRESSION: 1. No sonographic evidence of cholelithiasis or acute cholecystitis. 2. Findings most commonly related to hepatic steatosis. Correlate with liver function tests.
[2017-12-28 16:08] VITALS: BP 116/74; PULSE 56; RESP 16; TEMP 97.5
== END 2017-12-28 16:07 | disposition home or self-care (01) ==
LOC: EC 13:17
DX: R11.2 Nausea with vomiting, unspecified (principal); R07.9 Chest pain, unspecified; R10.9 Unspecified abdominal pain; F12.90 Cannabis use, unspecified, uncomplicated; R51 Headache; R11.0 Nausea; I69.354 Hemiplegia and hemiparesis following cerebral infarction affecting left non-dominant side; E11.9 Type 2 diabetes mellitus without complications; K21.9 Gastro-esophageal reflux disease without esophagitis; F32.9 Major depressive disorder, single episode, unspecified; Z87.891 Personal history of nicotine dependence; Z79.82 Long term (current) use of aspirin; Z79.84 Long term (current) use of oral hypoglycemic drugs; Z79.899 Other long term (current) drug therapy; Z82.49 Family history of ischemic heart disease and other diseases of the circulatory system
CPT/HCPCS: 36415; 70450; 71046; 76705; 80053; 80306; 82550; 82553; 83690; 83735; 84484; 85025; 85610; 85730; 93005; 99285

== ENCOUNTER → 2018-01-18 | Outpatient (CLI) | payer MEDICARE ==
--- NOTE | 2018-01-18 10:20 | FL ---
EXAMINATION TYPE: FL UGI air w esophagus DATE OF EXAM: 01/18/2018 COMPARISON: Prior upper GI exams April 25, 2016 and February 04, 2015 HISTORY: Nausea and vomiting per order. History of known hiatal hernia. TECHNIQUE: A single/double contrast UGI study is performed. FINDINGS: [employer] image of the abdomen shows overall nonobstructive bowel gas pattern. Postsurgical ch estevan at lumbosacral junction is redemonstrated. The esophagus shows normal motility and emptying into the stomach. No evidence of intraluminal mass or stricture noted. Small sliding-type hiatal hernia is redemonstrated on prone drinking. The stomach shows normal distensibility and peristalsis. Mild to moderate prominence of gastric folds diffusely is felt present. No evidence of any mass or ulcer disease. Occasional gastroesophageal ref lux is seen during real-time performance of study. The duodenal bulb, sweep, and proximal small bowel loops are unremarkable. IMPRESSION: Redemonstration of small sliding-type hiatal hernia and occasional gastroesophageal reflu x, suspect underlying mild to moderate diffuse gastritis without charity ulcer disease.
[2018-01-18 10:57] LABS: HCT 46.1 % (39.0-53.0); HGB 15.4 gm/dL (13.0-17.5); MCH 29.1 pg (25.0-35.0); MCHC 33.4 g/dL (31.0-37.0); Mean Platelet Volume 6.8; Platelet Count 243 k/uL (150-450); RDW 13.1 % (11.5-15.5)
[2018-01-18 10:59] LABS: ALT 49 U/L (21-72); AST 39 U/L (17-59); Albumin 4.5 g/dL (3.5-5.0); Alkaline Phosphatase 79 U/L (38-126); Anion Gap 8 mmol/L; Blood Urea Nitrogen 27 mg/dL (9-20); Calcium 9.5 mg/dL (8.4-10.2); Carbon Dioxide 28 mmol/L (22-30); Chloride 104 mmol/L (98-107); Cholesterol 183 mg/dL (<200); Glucose 182 mg/dL (74-99); HDL Cholesterol 44 mg/dL (40-60); LDL Cholesterol,Calculated 95 mg/dL (0-99); Potassium 4.3 mmol/L (3.5-5.1); Sodium 140 mmol/L (137-145); Total Bilirubin 1.1 mg/dL (0.2-1.3); Total Protein 7.5 g/dL (6.3-8.2); Triglycerides 221 mg/dL (<150)
[2018-01-18 11:14] LABS: T4, Free (Free Thyroxine) 0.96 ng/dL (0.78-2.19)
[2018-01-18 23:08] LABS: Hemoglobin A1C 8.5 % (4.0-6.0)
== END | disposition home or self-care (01) ==
LOC: RADFLWHC 08:59
PROVIDERS: ATTEND Internal Medicine
DX: K44.9 Diaphragmatic hernia without obstruction or gangrene (principal); K21.0 Gastro-esophageal reflux disease with esophagitis; E78.2 Mixed hyperlipidemia; E11.9 Type 2 diabetes mellitus without complications; I11.9 Hypertensive heart disease without heart failure
CPT/HCPCS: 36415; 74246; 80053; 80061; 82043; 82272; 82570; 83036; 84439; 84443; 85027

== ENCOUNTER → 2018-05-31 | Outpatient (CLI) | payer MEDICARE ==
--- NOTE | 2018-05-31 09:14 | NM ---
EXAMINATION TYPE: NM gastric emptying study DATE OF EXAM: 05/31/2018 COMPARISON: NONE HISTORY: Nausea with vomiting per order. Diminished appetite per patient. Following administration of 1.7 mCi Tc 99m Sulfur Colloid with 1 cup of oatmeal projection images of the abdomen were obtained 10 minutes post ingestion. When possible, both anterior and posterior proje ction images were obtained to allow the calculation of the geometric mean activity. Clearance: 100 % Half-life: 12 min Gastroesophageal reflux: None visualized IMPRESSION: Gastric emptying: Fast emptying identified. Gastric emptying normal percentage values: 30 minutes: <70% of retention (> 30% emptying) suggests abnormally fast emptying. 60 minutes: <90% retention (>10% emptying) is normal; less than 30% retention (>70% emptying) suggest s abnormally rapid emptying. 90 minutes: <65% retention (> 35% emptying) is normal. 120 minutes: <60% retention (> 40% emptying) is normal. 180 minutes: <30% retention (> 70% emptying) is normal. Gastric emptying T-1/2: Solid: The normal range is 60-105 minutes Liquid only: Normal range is 10-45 minutes. Liquid only-children: At 60 minutes, normal range is 44-58 % . Liquid only-infants: At 60 minutes, normal range is 32-64 %. Additional references: Gastric Emptying Scintigraphy [email or web address]://[email or web address]
== END | disposition home or self-care (01) ==
LOC: RADNMMAIN 06:54
DX: R11.2 Nausea with vomiting, unspecified (principal)
CPT/HCPCS: 78264; A9541

== ENCOUNTER → 2018-11-02 | Outpatient (CLI) | payer MEDICARE ==
--- NOTE | 2018-11-02 09:42 | NM ---
EXAMINATION TYPE: NM hepatobiliary w EF DATE OF EXAM: 11/02/2018 COMPARISON: NONE HISTORY: Right upper quadrant pain TECHNIQUE: After the intravenous administration of 4.9 mCi Tc 99m Mebrofenin hepatobiliary scintigrap hy is performed. Immediate images post injection. FINDINGS: There is satisfactory initial accumulation of tracer by the liver. The gallbladder is visualized wit hin 24 minutes. The small bowel activity is noted within 14 minutes. At one hour 8 ounces of oral e nsure plus is given to mimic CCK and gallbladder ejection fraction is calculated at 94%. IMPRESSION: Elevated gallbladder ejection fraction indicating hypercontractile state.
== END | disposition home or self-care (01) ==
LOC: RADNMMAIN 06:54
PROVIDERS: ATTEND Internal Medicine
DX: K82.8 Other specified diseases of gallbladder (principal)
CPT/HCPCS: 78226; A9537

== ENCOUNTER 2022-02-16 11:34 | Emergency (ER) | payer MEDICARE, OTHER ==
[2022-02-16 11:59] VITALS: RESP 20; TEMP 98
[2022-02-16] MEDS ORDERED: ONDANSETRON 4 MG/2 ML VIAL IVP STA (12:18)
[2022-02-16] MEDS ORDERED: HYDROmorphone 0.5 MG/0.5 ML SYRINGE IVP STA (12:18)
[2022-02-16 12:20] VITALS: PULSE 92
[2022-02-16 12:47] LABS: Basophils # (A) 0.1 k/uL (0-0.2); Basophils % (A) 0 %; Eosinophils # (A) 0.2 k/uL (0-0.7); Eosinophils % (A) 1 %; HCT 40.2 % (39.0-53.0); HGB 12.8 gm/dL (13.0-17.5); Lymphocytes # (A) 1.6 k/uL (1.0-4.8); Lymphocytes % (A) 12 %; MCHC 31.8 g/dL (31.0-37.0); MCV 94.6 fL (80.0-100.0); Mean Platelet Volume 7.5; Monocytes # (A) 0.9 k/uL (0-1.0); Monocytes % (A) 6 %; Neutrophils # (A) 10.7 k/uL (1.3-7.7); Neutrophils % (A) 79 %; Platelet Count 296 k/uL (150-450); RBC 4.25 m/uL (4.30-5.90); WBC 13.7 k/uL (3.8-10.6)
[2022-02-16 13:05] LABS: African American GFR (CKD) >90 (>60 ml/min/1.73 sqM); Anion Gap 22 mmol/L; Blood Urea Nitrogen 26 mg/dL (9-20); Calcium 9.4 mg/dL (8.4-10.2); Carbon Dioxide 15 mmol/L (22-30); Chloride 98 mmol/L (98-107); Glucose 158 mg/dL (74-99); Non-African American GFR(CKD) 89 (>60 ml/min/1.73 sqM); Potassium 5.3 mmol/L (3.5-5.1); Sodium 135 mmol/L (137-145)
[2022-02-16 13:09] LABS: INR 0.9 (<1.2); Partial Thromboplastin Time 23.7 sec (22.0-30.0); Prothrombin Time 9.8 sec (9.0-12.0)
[2022-02-16 14:14] VITALS: BP 122/81
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
--- NOTE | 2022-02-17 21:22 | XR ---
EXAMINATION TYPE: XR femur RT DATE OF EXAM: 02/16/2022 COMPARISON: None HISTORY: Pain TECHNIQUE: 2 view right femur FINDINGS: Femoral head articulates with the acetabulum. Joint space is preserved. Soft tissues are no rmal. Knee joint space has some mild narrowing. No acute fractures are evident. Follow up exams can b e performed 7-10 days Jammie trauma for continued pain. IMPRESSION: 1. No acute osseous abnormality right femur
== END 2022-02-16 15:05 | disposition home or self-care (01) ==
LOC: EC 11:34
DX: S80.11XA Contusion of right lower leg, initial encounter (principal); E11.9 Type 2 diabetes mellitus without complications; Z79.83 Long term (current) use of bisphosphonates; K21.9 Gastro-esophageal reflux disease without esophagitis; Z86.73 Personal history of transient ischemic attack (TIA), and cerebral infarction without residual deficits; W13.3XXA Fall through floor, initial encounter
CPT/HCPCS: 36415; 80048; 85025; 85610; 85730; 73552; 99283; 96374; 96375; J2405; J1170

== ENCOUNTER 2022-05-24 23:36 | Inpatient (IN) | payer MEDICARE, OTHER ==
[2022-05-24] MEDS ORDERED: SODIUM CHLORIDE 0.9% 1,000 ML IV STA (23:42)
--- NOTE | 2022-05-24 23:47 | ED ---
General Adult HPI - General Stated complaint: Chest Pain Time Seen by Provider: 05/24/22 23:39 Source: family Mode of arrival: ambulatory Limitations: no limitations - History of Present Illness Initial comments: Dictation was produced using [employer] dictation software. please excuse any grammatical, word or spelling errors. Chief Complaint: 71-year-old male presents emergency room with with strokelike symptoms History of Present Illness: Patient is 71-year-old male brought in by from home for one hour of strokelike symptoms. Symptoms began at approximately 10:45 PM. Patient has history of CVA twice. His last CVA was in 2006. Patient takes daily aspirin. Is not any anticoagulation medications. reports the patient has no history of intracranial hemorrhage. at the bedside reports that his last normal was 1 hour ago she was with him at that time. He was admitted to the hospital back in 2016 for strokelike symptoms where he was e valuated by neurologist. reports that patient has residual left-sided deficits. She reports that patient's deficits are barely noticeable. Patient has very slurred speech he did complain to her about some chest pain. The ROS documented in this emergency department record has been reviewed and confirmed by me. Those systems with pertinent positive or negative responses have been documented in the HPI. All other systems are other negative and/or noncontributory. PHYSICAL EXAM: General Impression: Alert and oriented x3, not in acute distress HEENT: Normocephalic atraumatic, extra-ocular movements intact, pupils equal and reactive to light bilaterally, mucous membranes moist. Cardiovascular: Heart regular rate and rhythm Chest: Able to complete full sentences, no retractions, no tachypnea Abdomen: abdomen soft, non-tender, non-distended, no organomegaly Musculoskeletal: Pulses present and equal in all extremities, no peripheral edema Motor: no focal deficits noted Neurological: NIH score of 10 Skin: Intact with no visualized rashes Psych: Normal affect and mood ED course: 71-year-old male presents emergency department for reported acute strokelike symptoms 1 hour prior to arrival. Patient has no absolute contraindications. He does have a history of CVA. Patient given an NIH score of 10. Code alteplase was activated. Nursing notes and chart review was performed Spoke with Dr. Aly at approximately 12:00 AM. Patient is a candidate for TPA. Risk and benefits were discussed with patient regarding TPA administration. He refuses. He understands the risk of refusal. Repeat neurologic evaluation 12:10 AM shows improvement of his neurologic symptoms. CT imaging of the brain shows no acute processes. CT angiography of the head and neck is negative. Patient not a candidate for thrombectomy. Chest x-ray is nonacute. Laboratory evaluation is unremarkable. Troponin is negative. Patient reevaluated at bedside 2:15 AM resting comfortably. Patient given aspirin. Patient be admitted with consultation to cardiology and neurology. My EKG interpretation: Ventricular rate 75, sinus rhythm,. 171, QRS 90, QTC 408. No [place] prolongation, no QTC prolongation, no ST or T-wave changes noted. . Overall, this EKG is unremarkable Critical Care: yes Critical Care time: 33 minutes - Related Data Home Medications Medication Instructions Recorded Confirmed Gabapentin [Neurontin] 600 mg PO HS 07/30/14 12/28/17 metFORMIN HCL [Glucophage] 250 mg PO BID 07/30/14 12/28/17 Dipyridamole-Aspirin 200-25 mg 1 tab PO BID 07/01/15 12/28/17 [Aggrenox 25MG -200MG] Hydrocodone/Acetaminophen 1 tab PO TID PRN 07/01/15 12/28/17 [Hydrocodon-Acetaminophn 10-325] Docusate [Colace] 200 mg PO HS 05/31/16 12/28/17 Lansoprazole [Prevacid] 15 mg PO DAILY 12/10/16 12/28/17 DULoxetine HCL [Cymbalta] 60 mg PO DAILY 12/28/17 12/28/17 [place]-3 Fatty Acids/Fish Oil [Fish 1 cap PO DAILY 12/28/17 12/28/17 Oil 1,000 mg Softgel] Potassium Gluconate [Potassium 99 mg PO DAILY 12/28/17 12/28/17 Gluconate ER] levETIRAcetam [Keppra] 500 mg PO Q12HR 12/28/17 12/28/17 Previous Rx's Medication Instructions Recorded Ondansetron Odt [Zofran ODT] 4 mg PO Q8HR PRN #30 tab 12/28/17 Pantoprazole Sodium [Protonix] 40 mg PO DAILY #30 tablet. 12/28/17 Allergies Allergy/AdvReac Type Severity Reaction Status Date / Time No Known Allergies Allergy Verified 02/16/22 11:59 Review of Systems ROS Statement: Those systems with pertinent positive or pertinent negative responses have been documented in the HPI. ROS Other: All systems not noted in ROS Statement are negative. Past Medical History Past Medical History: CVA/TIA, Diabetes Mellitus, GERD/Reflux Additional Past Medical History / Comment(s): HX OF CVA WITH LEFT ARM WEAKNESS, HX OF TIA'S. STATES HE HAS NO HX OF SEIZURES BUT THEY STARTED HIM ON SEIZURE MEDS., CONSTIPATION. History of Any Multi-Drug Resistant Organisms: None Reported Past Surgical History: Back Surgery Additional Past Surgical History / Comment(s): BACK SURGERY WITH PINS. Past Psychological History: Depression Past Alcohol Use History: None Reported Past Drug Use History: Marijuana - Past Family History Mother Family Medical History: CVA/TIA, Diabetes Mellitus Father Family Medical History: Diabetes Mellitus, Myocardial Infarction ([place]) General Exam Limitations: no limitations Course Vital Signs 05/25/22 05/25/22 00:14 01:16 Temperature 98.4 F Pulse Rate 77 82 Respiratory 16 14 Rate Blood Pressure 142/82 136/74 O2 Sat by Pulse 97 97 Oximetry Medical Decision Making - Lab Data Result diagrams: 05/24/22 23:46 05/24/22 23:46 Lab Results 05/24/22 05/24/22 05/24/22 Range/Units 23:46 23:46 23:46 WBC 7.5 (3.8-10.6) k/uL RBC 4.46 (4.30-5.90) m/uL Hgb 13.5 (13.0-17.5) gm/dL Hct 38.4 L (39.0-53.0) % MCV 86.0 (80.0-100.0) fL MCH 30.3 (25.0-35.0) pg MCHC 35.2 (31.0-37.0) g/dL RDW 14.1 (11.5-15.5) % Plt Count 234 (150-450) k/uL MPV 8.3 Neutrophils % 49 % Lymphocytes % 38 % Monocytes % 6 % Eosinophils % 4 % Basophils % 1 % Neutrophils # 3.6 (1.3-7.7) k/uL Lymphocytes # 2.9 (1.0-4.8) k/uL Monocytes # 0.5 (0-1.0) k/uL Eosinophils # 0.3 (0-0.7) k/uL Basophils # 0.1 (0-0.2) k/uL PT 10.2 (9.0-12.0) sec INR 1.0 (<1.2) APTT 24.1 (22.0-30.0) sec Sodium 138 (137-145) mmol/L Potassium 3.9 (3.5-5.1) mmol/L Chloride 105 (98-107) mmol/L Carbon Dioxide 21 L (22-30) mmol/L Anion Gap 12 mmol/L BUN 22 H (9-20) mg/dL Creatinine 0.79 (0.66-1.25) mg/dL Est GFR (CKD-EPI)AfAm >90 (>60 ml/min/1.73 sqM) Est GFR (CKD-EPI)NonAf >90 (>60 ml/min/1.73 sqM) Glucose 183 H (74-99) mg/dL POC Glucose (mg/dL) (70-110) mg/dL POC Glu St[employer] ID Calcium 9.1 (8.4-10.2) mg/dL Total Bilirubin 0.5 (0.2-1.3) mg/dL AST 34 (17-59) U/L ALT 28 (4-49) U/L Alkaline Phosphatase 59 (38-126) U/L Troponin I (0.000-0.034) ng/mL Total Protein 7.2 (6.3-8.2) g/dL Albumin 4.6 (3.5-5.0) g/dL 05/24/22 05/24/22 Range/Units 23:46 23:59 WBC (3.8-10.6) k/uL RBC (4.30-5.90) m/uL Hgb (13.0-17.5) gm/dL Hct (39.0-53.0) % MCV (80.0-100.0) fL MCH (25.0-35.0) pg MCHC (31.0-37.0) g/dL RDW (11.5-15.5) % Plt Count (150-450) k/uL MPV Neutrophils % % Lymphocytes % % Monocytes % % Eosinophils % % Basophils % % Neutrophils # (1.3-7.7) k/uL Lymphocytes # (1.0-4.8) k/uL Monocytes # (0-1.0) k/uL Eosinophils # (0-0.7) k/uL Basophils # (0-0.2) k/uL PT (9.0-12.0) sec INR (<1.2) APTT (22.0-30.0) sec Sodium (137-145) mmol/L Potassium (3.5-5.1) mmol/L Chloride (98-107) mmol/L Carbon Dioxide (22-30) mmol/L Anion Gap mmol/L BUN (9-20) mg/dL Creatinine (0.66-1.25) mg/dL Est GFR (CKD-EPI)AfAm (>60 ml/min/1.73 sqM) Est GFR (CKD-EPI)NonAf (>60 ml/min/1.73 sqM) Glucose (74-99) mg/dL POC Glucose (mg/dL) 193 H (70-110) mg/dL POC Glu St[employer] ID Domo Swan Calcium (8.4-10.2) mg/dL Total Bilirubin (0.2-1.3) mg/dL AST (17-59) U/L ALT (4-49) U/L Alkaline Phosphatase (38-126) U/L Troponin I <0.012 (0.000-0.034) ng/mL Total Protein (6.3-8.2) g/dL Albumin (3.5-5.0) g/dL Disposition Clinical Impression: CVA (cerebral vascular accident) Disposition: ADMITTED IP TO THIS [facility] Condition: Serious Referrals: Latanya Izaguirre MD [Primary Care Provider] - 1-2 days Decision Time: 02:15
[2022-05-24 23:53] LABS: Basophils # (A) 0.1 k/uL (0-0.2); Basophils % (A) 1 %; Eosinophils # (A) 0.3 k/uL (0-0.7); Eosinophils % (A) 4 %; HCT 38.4 % (39.0-53.0); HGB 13.5 gm/dL (13.0-17.5); Lymphocytes # (A) 2.9 k/uL (1.0-4.8); Lymphocytes % (A) 38 %; MCH 30.3 pg (25.0-35.0); MCHC 35.2 g/dL (31.0-37.0); Mean Platelet Volume 8.3; Monocytes # (A) 0.5 k/uL (0-1.0); Monocytes % (A) 6 %; Neutrophils # (A) 3.6 k/uL (1.3-7.7); Neutrophils % (A) 49 %; Platelet Count 234 k/uL (150-450); RBC 4.46 m/uL (4.30-5.90); RDW 14.1 % (11.5-15.5); WBC 7.5 k/uL (3.8-10.6)
[2022-05-25 00:01] LABS: Glucose,Whole Blood 193 mg/dL (70-110)
[2022-05-25 00:03] LABS: ALT 28 U/L (4-49); AST 34 U/L (17-59); African American GFR (CKD) >90 (>60 ml/min/1.73 sqM); Albumin 4.6 g/dL (3.5-5.0); Alkaline Phosphatase 59 U/L (38-126); Anion Gap 12 mmol/L; Blood Urea Nitrogen 22 mg/dL (9-20); Calcium 9.1 mg/dL (8.4-10.2); Carbon Dioxide 21 mmol/L (22-30); Chloride 105 mmol/L (98-107); Glucose 183 mg/dL (74-99); Non-African American GFR(CKD) >90 (>60 ml/min/1.73 sqM); Potassium 3.9 mmol/L (3.5-5.1); Sodium 138 mmol/L (137-145); Total Bilirubin 0.5 mg/dL (0.2-1.3); Total Protein 7.2 g/dL (6.3-8.2)
[2022-05-25 00:05] LABS: Partial Thromboplastin Time 24.1 sec (22.0-30.0); Prothrombin Time 10.2 sec (9.0-12.0)
[2022-05-25] MEDS ORDERED: ASPIRIN 81 MG PO STA (00:16)
--- NOTE | 2022-05-25 00:17 | CT ---
EXAMINATION TYPE: CT brain wo con for TPA DATE OF EXAM: 05/25/2022 COMPARISON: 12/28/2017 HISTORY: Neuro deficit, acute, stroke suspected CT DLP: 1930.5 mGycm Automated exposure control for dose reduction was used. Images of the brain obtained with no contrast. There is some cerebral cortical atrophy. There is no mass effect normal line shift. No sign of intrac ranial hemorrhage. The calvarium is intact. The skull base is intact. IMPRESSION: Mild atrophy. No acute intracranial abnormality. No significant change compared to old exam.
--- NOTE | 2022-05-25 00:27 | CT ---
EXAMINATION TYPE: CT angio head neck DATE OF EXAM: 05/25/2022 COMPARISON: MR angiogram 06/01/2016 HISTORY: Neuro deficit, acute, stroke suspected CT DLP: 1930.5 mGycm Automated exposure control for dose reduction was used. CONTRAST: Performed with IV Contrast, patient injected with 100 mL of Isovue 370. Images obtained from the aortic arch to the vertex of the brain with IV contrast. There are Three-D p ostprocessed images. There is normal branching pattern of the great vessels on the aortic arch. There is arterial flow in both subclavian arteries. There is arterial flow in the common internal and external carotid arteries bilaterally. There is fairly wide patency the carotid artery bifurcations. There is arterial flow in both vertebral arteries. There is arterial flow in the vertebral basilar artery system. There is no evidence of carotid or vertebral artery aneurysm or dissection. There is arterial flow in the anterior middle and posterior cerebral arteries bilaterally. There is n o mass effect. No evidence of intracranial aneurysm or neovascularity. No sign of hemodynamic arteria l stenosis. There is normal enhancement of the venous sinuses. IMPRESSION: Exam fails to demonstrate evidence of intracranial hemodynamic arterial stenosis. Negative CT angiogr am of the neck.
--- NOTE | 2022-05-25 02:02 | XR ---
EXAMINATION TYPE: XR chest 1V DATE OF EXAM: 05/25/2022 COMPARISON: 03/02/2017 HISTORY: Altered mental status TECHNIQUE: FINDINGS: Heart is normal. Lungs are clear of infiltrate. No heart failure. There are no hilar masses . There are chest leads. IMPRESSION: No active cardiopulmonary disease. No change.
[2022-05-25] MEDS: SODIUM CHLORIDE 0.9% 1,000 ML IV SCH (02:19)
[2022-05-25 11:34] LABS: Appearance,Urine Clear (Clear); Bilirubin,Urine Negative (Negative); Blood,Urine Negative (Negative); Color,Urine Light Yellow; Glucose,Urine (UA) 4+ (Negative); Ketones,Urine Negative (Negative); Leukocyte Esterase,Urine Negative (Negative); Nitrite,Urine Negative (Negative); Protein,Urine Negative (Negative); Specific Gravity,Urine 1.025 (1.001-1.035); Urobilinogen,Urine <2.0 mg/dL (<2.0)
--- NOTE | 2022-05-25 11:40 | P.CRDCN ---
History of Present Illness Consult date: 05/25/22 Requesting physician: Africa Ragsdale Reason for Consult (text): CVA, chest pain Chief complaint: chest pain for 3 days History of present illness: This is a pleasant 71-year-old gentleman with a past medical history of hypertension, hyperlipidemia, diabetes, CVA in 2006 and 2010 as well as history of mild CAD per cardiac catheterization done in 2017. Was brought to the emergency room with complaints of chest discomfort. He's been having intermittent chest discomfort typically occurring while he's walking over the past 3 days. The pain worsened last night while he was getting ready for bed. According to the shortly after arrival he developed left-sided facial droop, slurred speech and left-sided weakness at that time TPA was recommended but he declined. The has noticed some improvement in his symptoms but not back to his baseline. He T scan of the brain showed mild atrophy, no acute intracranial abnormality, no significant change compared to old exam. CTA of the head and neck fails to demonstrate evidence of intracranial hemodynamic arterial stenosis, negative CT angiogram of the neck. EKG shows sinus mechanism. Chest x-ray shows no active radial pulmonary disease, no change. Upon examination he is resting in the ER. Says he's feeling a bit better continues to clean of left-sided weakness with noticeable facial droop and some slurring of his speech. He does complain of some dyspnea on exertion but been stable for quite some time. Denies any complaints of chest discomfort since arrival. Troponins were negative 3. Past Medical History Past Medical History: CVA/TIA, Diabetes Mellitus, GERD/Reflux Additional Past Medical History / Comment(s): HX OF CVA WITH LEFT ARM WEAKNESS, HX OF TIA'S. STATES HE HAS NO HX OF SEIZURES BUT THEY STARTED HIM ON SEIZURE MEDS., CONSTIPATION. History of Any Multi-Drug Resistant Organisms: None Reported Past Surgical History: Back Surgery Additional Past Surgical History / Comment(s): BACK SURGERY WITH PINS. Past Psychological History: Depression Past Alcohol Use History: None Reported Past Drug Use History: Marijuana - Past Family History Mother Family Medical History: CVA/TIA, Diabetes Mellitus Father Family Medical History: Diabetes Mellitus, Myocardial Infarction ([place]) Medications and Allergies Home Medications Medication Instructions Recorded Confirmed Type Docusate [Colace] 200 mg PO HS 05/31/16 05/25/22 History DULoxetine HCL [Cymbalta] 60 mg PO DAILY 12/28/17 05/25/22 History Aspirin [Adult Low Dose Aspirin EC] 81 mg PO DAILY 05/25/22 05/25/22 History Atorvastatin [Lipitor] 40 mg PO DAILY 05/25/22 05/25/22 History Gabapentin [Neurontin] 300 mg PO QID 05/25/22 05/25/22 History Mirtazapine [Remeron] 15 mg PO HS 05/25/22 05/25/22 History Omeprazole [PriLOSEC] 40 mg PO DAILY 05/25/22 05/25/22 History metFORMIN HCL [Glucophage] 1,000 mg PO BID 05/25/22 05/25/22 History Allergies Allergy/AdvReac Type Severity Reaction Status Date / Time No Known Allergies Allergy Verified 05/25/22 10:32 Physical Exam Vitals: Vital Signs Temp Pulse Resp BP Pulse Ox 05/25/22 06:22 70 14 132/64 96 05/25/22 02:33 68 14 120/70 97 05/25/22 01:16 82 14 136/74 97 05/25/22 00:14 98.4 F 77 16 142/82 97 Intake and Output 05/24/22 05/25/22 05/25/22 22:59 06:59 14:59 Other: Weight 102.1 kg PHYSICAL EXAMINATION: This is a 71-year-old male in no apparent distress at the time of my examination. HEENT: Head is atraumatic, normocephalic. Pupils are equal, round. Sclerae anicteric. Conjunctivae are clear. Mucous membranes of the mouth are moist. Neck is supple. There is no elevated jugular venous pressure. No carotid bruit is heard. CHEST EXAMINATION: Clear to auscultation bilaterally. No wheezes rales or rhonchi. Respirations even and nonlabored. HEART EXAMINATION: Heart regular, positive S1 and S2. No S3. No S4. No clicks, rubs or murmurs. ABDOMEN: Soft, nontender. Bowel sounds are heard. No organomegaly noted. EXTREMITIES: 2+ peripheral pulses with no evidence of peripheral edema and no calf tenderness noted. NEUROLOGIC EXAMINATION: Patient is awake, alert and oriented x3. Left-sided weakness, facial droop and slurred speech noted. Results 05/24/22 23:46 05/24/22 23:46 Cardiac Enzymes 05/24/22 05/24/22 05/25/22 Range/Units 23:46 23:46 02:40 AST 34 (17-59) U/L Troponin I <0.012 <0.012 (0.000-0.034) ng/mL 05/25/22 Range/Units 05:34 AST (17-59) U/L Troponin I <0.012 (0.000-0.034) ng/mL Coagulation 05/24/22 Range/Units 23:46 PT 10.2 (9.0-12.0) sec APTT 24.1 (22.0-30.0) sec CBC 05/24/22 Range/Units 23:46 WBC 7.5 (3.8-10.6) k/uL RBC 4.46 (4.30-5.90) m/uL Hgb 13.5 (13.0-17.5) gm/dL Hct 38.4 L (39.0-53.0) % Plt Count 234 (150-450) k/uL Comprehensive Metabolic Panel 05/24/22 Range/Units 23:46 Sodium 138 (137-145) mmol/L Potassium 3.9 (3.5-5.1) mmol/L Chloride 105 (98-107) mmol/L Carbon Dioxide 21 L (22-30) mmol/L BUN 22 H (9-20) mg/dL Creatinine 0.79 (0.66-1.25) mg/dL Glucose 183 H (74-99) mg/dL Calcium 9.1 (8.4-10.2) mg/dL AST 34 (17-59) U/L ALT 28 (4-49) U/L Alkaline Phosphatase 59 (38-126) U/L Total Protein 7.2 (6.3-8.2) g/dL Albumin 4.6 (3.5-5.0) g/dL Current Medications Generic Name Dose Route Start Last Admin Trade Name Freq PRN Reason Stop Dose Admin Aspirin 81 mg 05/26/22 09:00 Aspirin 81 Mg PO DAILY [facility] Atorvastatin Calcium 40 mg 05/26/22 09:00 Atorvastatin 40 Mg Tab PO DAILY [facility] Docusate Sodium 200 mg 05/25/22 21:00 Docusate 100 Mg Cap PO HS [facility] Duloxetine HCl 60 mg 05/26/22 09:00 Duloxetine Hcl 60 Mg Capsule.Dr PO DAILY [facility] Gabapentin 300 mg 05/25/22 13:00 Gabapentin 300 Mg Cap PO QID [facility] Heparin Sodium (Porcine) 5,000 unit 05/25/22 11:15 Heparin Sodium,Porcine/Pf 5,000 Unit/0.5 Ml Syringe SQ Q12HR [facility] Sodium Chloride 1,000 mls @ 20 mls/hr 05/25/22 02:15 05/25/22 02:19 Saline 0.9% IV Not Given .Q24H [facility] Mirtazapine 15 mg 05/25/22 21:00 Mirtazapine 15 Mg Tab PO HS [facility] Pantoprazole Sodium 40 mg 05/26/22 09:00 Pantoprazole 40 Mg Tablet PO DAILY [facility] Intake and Output 05/24/22 05/25/22 05/25/22 22:59 06:59 14:59 Other: Weight 102.1 kg 05/24/22 23:46 05/24/22 23:46 EKG Interpretations (text) Sinus rhythm Assessment and Plan Assessment: #1 symptoms of chest discomfort concerning for angina, troponins negative 3 #2 CVA, recurrent #3 mild CAD #4 hypertension #5 hyperlipidemia #6 diabetes Plan: From cardiology's perspective would recommend heparinization if okay with neurology. We will obtain a 2-D echo with Doppler study to assess cardiac structure and function. We will add oral nitrate and beta michelle. Patient may require stress testing vs cardiac catheterization once stable from a neurological standpoint. We will continue to follow the patient and provide further recommendations accordingly. [employer] note has been reviewed, I agree with a documented findings and plan of care. Patient was seen and examined.
[2022-05-25] MEDS: NITROGLYCERIN OINT 1 INCH/GM PACKET TOPICAL SCH ×3 (11:57→23:40)
[2022-05-25] MEDS: METOPROLOL TARTRATE 25 MG TAB PO SCH ×2 (11:58→20:39)
[2022-05-25] MEDS: HEPARIN SODIUM,PORCINE/PF 5,000 UNIT/0.5 ML SYRINGE SQ SCH ×2 (11:59→20:40)
[2022-05-25] MEDS: GABAPENTIN 300 MG CAP PO SCH ×3 (15:14→20:40)
[2022-05-25 18:59] LABS: Glucose,Whole Blood 222 mg/dL (70-110)
[2022-05-25] MEDS: CLOPIDOGREL 75 MG TAB PO SCH (19:03)
[2022-05-25] MEDS: MIRTAZAPINE 15 MG TAB PO SCH (20:39)
[2022-05-25] MEDS: DOCUSATE 100 MG CAP PO SCH (20:39)
--- NOTE | 2022-05-25 21:15 | HP ---
HISTORY AND PHYSICAL CHIEF COMPLAINT: Weakness of the left side of the body. HISTORY OF PRESENT ILLNESS: This is a 71-year-old gentleman with a past medical history of multiple strokes, history of diabetes mellitus, and GERD, being followed by Dr. Izaguirre in the outpatient, noted to have left-sided weakness. The patient was taken to [facility], and NIH stroke scale was apparently 9, but the patient apparently refused tPA, and stroke code was also called. The patient was started on conservative line of management, and Neurology Team was consulted. There is no history of any fever, rigors, or chills at this time. He had a CT of the brain, which I reviewed personally, showed mild atrophy with no intracranial abnormality, and a CT angiography was also done, which showed no evidence of any arterial stenosis. The patient was admitted for further evaluation. The patient also complains of chest pain. PAST MEDICAL HISTORY: Reviewed and included diabetes mellitus and multiple strokes. The rest of the history and the rest of the chart are noted. HOME MEDICATIONS: Reviewed, Prilosec. Doses and the rest of the medications were reviewed. ALLERGIES: None. FAMILY HISTORY: History of diabetes mellitus in the family. SOCIAL HISTORY: History of THC, smoking. REVIEW OF SYSTEMS: A 14-point review of systems is negative except dysarthria. PHYSICAL EXAMINATION: VITAL SIGNS: Pulse is 70, blood pressure 130/65, respirations 14. HEENT: Conjunctivae are normal. NECK: No jugular venous distention. CARDIOVASCULAR: S1 and S2 muffled. RESPIRATORY: Breath sounds diminished at the bases. ABDOMEN: Soft. LEGS: No edema. NERVOUS SYSTEM: Diffusely weak left more than right. The patient is dysarthric. Eye movements are full in all directions. Gait, not tested. SKIN: No rash. JOINTS: No active deforming arthropathy. LABORATORY DATA: Noted. Glucose 193. Troponins are negative. ASSESSMENT: 1. Possible acute stroke involving the right hemisphere causing left-sided weakness. 2. History of previous multiple strokes. 3. History of chest pain. 4. Diabetes mellitus, type 2. 5. Cerebrovascular accident. 6. Gastroesophageal reflux disease. 7. Multiple medical issues. RECOMMENDATIONS: This is a 71-year-old gentleman presented with multiple complex medical issues. We will monitor the patient closely. We will continue his antiplatelet agents. Neurovascular investigations, neuro checks, and Neurology consultations. I would also recommend a Cardiology consultation because of chest pain. Initial troponins are negative. The EKG which I reviewed personally showed some ST-T changes. No acute changes otherwise. Overall prognosis once again is guarded. See orders for details. Further recommendations to follow. Discussed with the patient and family at length. Please note, the patient refused tPA. MMODL / IJN: [id number] /
[2022-05-25] MEDS: HYDROcodone/APAP 10-325MG 1 EACH TAB PO PRN (21:24)
--- NOTE | 2022-05-26 00:08 | P.CNNES ---
History of Present Illness Consult date: 05/25/22 Requesting physician: Nicholas Scott Reason for Consult: CVA History of Present Illness: Patient is a 71-year-old male with history of hypertension, diabetes, hyperlipidemia, previous history of stroke TIA, came to the hospital for chest pain to of 3 days duration. Patient did not tell his until last night at 10 PM. Family brought him to the hospital at 11:36 PM. When patient arrived to the hospital, he developed strokelike symptoms in the ER, with slurred speech, left-sided weakness. Family states that patient's left side became limp and he couldn't talk and he was staggering, like he will fall. As per ED records, patient came to the hospital with stroke like symptoms of 1 hour duration. Symptoms started at 10:45 PM. Stroke code was activated. His NIH stroke scale was reported as 10. TPA was recommended but patient declined. Repeat neurological evaluation at 12:10 AM showed improvement in his neurological symptoms. Computed tomography scan of head revealed mild atrophy, no acute intracranial abnormality. No significant changes compared to old exam from 12/28/2017. I personally reviewed CT head, agree with the findings. EKG showed sinus rhythm CTA of head and neck showed no intracranial hemodynamic arteriostenosis. Negative CTA of the neck. Chest x-ray revealed no active cardiopulmonary disease. Blood test shows normal CBC, PT/PTT, normal electrolytes, normal renal functions. Hepatic panel is normal, troponin negative. UA negative. Kulkarni virus PCR negative. Patient states he had history of stroke affected his left side in 2006. He was hospitalized for 2 weeks in [facility], and he had to learn to walk. He had another stroke in 2010, for which he was admitted to [facility], and this time also affected his left side, but after each strokes, he had no residual deficits. Patient has diabetes since 2006. Patient has hypertension, hyperlipidemia. Patient has smoked one cigar per day. Patient smokes marijuana daily for chronic low back pain. Patient has history of lumbar surgery with chronic low back pain since 2009. Patient has been taking aspirin 325 mg daily since 2006 after he suffered from a stroke. Patient has chronic back pain since his back surgery. He follows up with Dr. Cardoso, who gives him Jackson 10 4 times a day. Review of Systems Constitutional: Denies chills, Denies fever Eyes: denies blurred vision, denies pain Ears, nose, mouth and throat: Denies headache, Denies sore throat Cardiovascular: Reports chest pain, Reports high blood pressure, Denies shortness of breath Respiratory: Denies cough Gastrointestinal: Denies abdominal pain, Denies diarrhea, Denies nausea, Denies vomiting Musculoskeletal: Reports low back pain, Reports muscle weakness, Denies myalgias Integumentary: Denies pruritus, Denies rash Neurological: Reports as per HPI Psychiatric: Reports depression, Denies hallucinations Endocrine: Denies fatigue, Denies weight change Past Medical History Past Medical History: CVA/TIA, Diabetes Mellitus, GERD/Reflux Additional Past Medical History / Comment(s): HX OF CVA WITH LEFT ARM WEAKNESS, HX OF TIA'S. STATES HE HAS NO HX OF SEIZURES BUT THEY STARTED HIM ON SEIZURE MEDS., CONSTIPATION. History of Any Multi-Drug Resistant Organisms: None Reported Past Surgical History: Back Surgery Additional Past Surgical History / Comment(s): BACK SURGERY WITH PINS. Past Psychological History: Depression Past Alcohol Use History: None Reported Past Drug Use History: Marijuana - Past Family History Mother Family Medical History: CVA/TIA, Diabetes Mellitus Father Family Medical History: Diabetes Mellitus, Myocardial Infarction ([place]) Medications and Allergies Home Medications Medication Instructions Recorded Confirmed Type Docusate [Colace] 200 mg PO HS 05/31/16 05/25/22 History DULoxetine HCL [Cymbalta] 60 mg PO DAILY 12/28/17 05/25/22 History Aspirin [Adult Low Dose Aspirin EC] 81 mg PO DAILY 05/25/22 05/25/22 History Atorvastatin [Lipitor] 40 mg PO DAILY 05/25/22 05/25/22 History Gabapentin [Neurontin] 300 mg PO QID 05/25/22 05/25/22 History Mirtazapine [Remeron] 15 mg PO HS 05/25/22 05/25/22 History Omeprazole [PriLOSEC] 40 mg PO DAILY 05/25/22 05/25/22 History metFORMIN HCL [Glucophage] 1,000 mg PO BID 05/25/22 05/25/22 History Allergies Allergy/AdvReac Type Severity Reaction Status Date / Time No Known Allergies Allergy Verified 05/25/22 10:32 Physical Examination - Vital Signs Vital Signs: Vital Signs Temp Pulse Resp BP Pulse Ox 05/25/22 15:16 97.8 F 59 L 20 145/96 98 05/25/22 11:56 60 18 138/83 97 05/25/22 06:22 70 14 132/64 96 05/25/22 02:33 68 14 120/70 97 05/25/22 01:16 82 14 136/74 97 05/25/22 00:14 98.4 F 77 16 142/82 97 Intake and Output 05/25/22 05/25/22 05/25/22 06:59 14:59 22:59 Other: Weight 102.1 kg Patient is an elderly male, who appears somewhat emotional, crying because of back pain. Appears somewhat in pain. Slightly restless. Patient is alert awake oriented to time place and person. He knows it is [facility], and it is May 2022. Speech and language functions are normal. Patient can name and repeat very well. No aphasia or dysarthria. Patient speaks with somewhat atypical manner, crying frequently. Attention, concentration and fund of knowledge is adequate. On cranial nerve examination, pupils are equal, round and reacting to light, visual rojo are full on confrontation, with no neglect on double simultaneous stimulation. Extraocular muscles are intact with no nystagmus. Face is symmetric, tongue protrudes to the midline. Palatal elevation and sensation n ormal, hearing and shoulder shrug normal, facial sensation normal. On muscle strength testing, there is no pronator drift. The strength is grossly normal on the right side. The left side is diffusely 5-, with some decreased effort as well. Deep tendon reflexes are symmetric biceps 1+, brachioradialis trace, knees 1+, ankles absent and plantars are flat bilaterally. Sensory to touch is equal with no neglect on double simultaneous stimulation. Cerebellar function showed no ataxia for [id number] testing. No dysdiadochokinesia. No ataxia for [id number] testing on either side. Tone and bulk of muscles normal. Gait deferred.. On general examination, there is no carotid bruit or murmur, S1-S2 audible. Chest is clear on consultation. Abdomen is soft nontender. No organomegaly, bowel sounds present. Peripheral pulses are present. No edema. Results - Laboratory Findings CBC and BMP: 05/24/22 23:46 05/24/22 23:46 Abnormal Lab Findings: Abnormal Labs 05/24/22 05/24/22 05/24/22 23:46 23:46 23:59 Hct 38.4 L Carbon Dioxide 21 L BUN 22 H Glucose 183 H POC Glucose (mg/dL) 193 H Urine Glucose (UA) 05/25/22 11:22 Hct Carbon Dioxide BUN Glucose POC Glucose (mg/dL) Urine Glucose (UA) 4+ H Assessment and Plan Assessment: * Possible stroke TIA manifesting with slurred speech, left-sided weakness, this seems to have resolved. Current NIH stroke scale is 0. Patient declined TPA. * Previous history of stroke/TIA 2 (2006, 2010), with no residual deficits. * Hypertension * Diabetes * Hyperlipidemia * Marijuana use * Chronic low back pain Plan: * MRI of the brain without contrast, evaluate for acute CVA * 2-D echo with bubble study to rule out PFO * CTA head and neck showed: No stenosis. * Patient was on aspirin 325 mg daily. Due to possible failure, we will start Plavix 75 mg daily. We will consider switching from aspirin to Plavix. * Fasting a.m. lipid panel * Hemoglobin A1c * Permissive hypertension for next 24-48 hours * Close neuro checks as per protocol. * Telemetry monitoring rule out any arrhythmia * For chest pain, cardiology on board. * DVT prophylaxis: Heparin 5000 units subcu every 8 hours * Neurology will continue ot follow. Thank you for the consult.
[2022-05-26 06:32] LABS: Glucose,Whole Blood 168 mg/dL (70-110)
[2022-05-26 07:56] LABS: Basophils % (A) 1 %; Eosinophils # (A) 0.2 k/uL (0-0.7); Eosinophils % (A) 4 %; HCT 38.5 % (39.0-53.0); HGB 12.8 gm/dL (13.0-17.5); Lymphocytes # (A) 2.1 k/uL (1.0-4.8); Lymphocytes % (A) 39 %; MCH 29.2 pg (25.0-35.0); MCHC 33.3 g/dL (31.0-37.0); MCV 87.5 fL (80.0-100.0); Monocytes # (A) 0.3 k/uL (0-1.0); Monocytes % (A) 6 %; Neutrophils # (A) 2.5 k/uL (1.3-7.7); Neutrophils % (A) 47 %; Platelet Count 221 k/uL (150-450); RDW 13.8 % (11.5-15.5); WBC 5.3 k/uL (3.8-10.6)
[2022-05-26 08:08] LABS: ALT 27 U/L (4-49); AST 31 U/L (17-59); African American GFR (CKD) >90 (>60 ml/min/1.73 sqM); Albumin 3.9 g/dL (3.5-5.0); Alkaline Phosphatase 55 U/L (38-126); Anion Gap 6 mmol/L; Blood Urea Nitrogen 19 mg/dL (9-20); Calcium 8.4 mg/dL (8.4-10.2); Carbon Dioxide 26 mmol/L (22-30); Chloride 106 mmol/L (98-107); Glucose 174 mg/dL (74-99); Non-African American GFR(CKD) >90 (>60 ml/min/1.73 sqM); Potassium 3.8 mmol/L (3.5-5.1); Sodium 138 mmol/L (137-145); Total Bilirubin 0.5 mg/dL (0.2-1.3); Total Protein 6.2 g/dL (6.3-8.2)
[2022-05-26] MEDS: HEPARIN SODIUM,PORCINE/PF 5,000 UNIT/0.5 ML SYRINGE SQ SCH ×2 (09:10→20:37)
[2022-05-26] MEDS: DULoxetine HCL 60 MG CAPSULE.DR PO SCH (09:11)
[2022-05-26] MEDS: CLOPIDOGREL 75 MG TAB PO SCH (09:11)
[2022-05-26] MEDS: ATORVASTATIN 40 MG TAB PO SCH (09:11)
[2022-05-26] MEDS: GABAPENTIN 300 MG CAP PO SCH ×4 (09:11→20:37)
[2022-05-26] MEDS: NITROGLYCERIN OINT 1 INCH/GM PACKET TOPICAL SCH (09:11)
[2022-05-26] MEDS: PANTOPRAZOLE 40 MG TABLET PO SCH (09:11)
[2022-05-26] MEDS: METOPROLOL TARTRATE 25 MG TAB PO SCH ×2 (09:11→20:37)
[2022-05-26] MEDS: ASPIRIN 81 MG PO SCH (09:11)
[2022-05-26 10:31] LABS: Chol/HDL Ratio 2.28 Ratio; LDL Cholesterol,Calculated 22.6 mg/dL (0.0-131.0)
--- NOTE | 2022-05-26 10:49 | MR ---
EXAMINATION TYPE: MR brain wo con DATE OF EXAM: 05/26/2022 COMPARISON: CT brain 05/24/2022 HISTORY: Left sided weakness, ?CVA CONTRAST: Performed utilizing 0 mL intravenous Gadavist gadolinium contrast. TECHNIQUE: Multiplanar, multiecho imaging on a 3.0 Opal magnet is performed through the brain. Stud y is performed within 24 hours of arrival to the hospital. The craniovertebral junction is normal. The pituitary is normal. Diffusion-weighted imaging is performed. No abnormal hyperintensity is present to suggest an acute i ntracranial infarct or acute ischemic change. There is some hyperintensity on T2-weighted sequences within the rigo and brainstem. Findings could b e related to some chronic white matter ischemic changes. On inversion recovery weighted sequences are scattered punctate. Ventricular and subcortical white matter changes Signal within the brain otherwi se appears essentially unremarkable. Ventricles and sulci are appropriate for the patient age. IMPRESSIONS: 1. Scattered periventricular and subcortical white matter changes as well as white matter changes in the brainstem. Findings are nonspecific but may be related to chronic white matter ischemic change. 2. No acute intracranial process apparent.
[2022-05-26 11:47] LABS: Glucose,Whole Blood 179 mg/dL (70-110)
[2022-05-26] MEDS: HYDROcodone/APAP 10-325MG 1 EACH TAB PO PRN ×2 (12:10→18:24)
--- NOTE | 2022-05-26 14:05 | P.PN ---
Subjective Progress Note Date: 05/26/22 History of Present Illness: The patient is a 71-year-old male who was admitted with right-sided weakness, chest discomfort. He is feeling better today. His weakness is better. He has no further chest discomfort. He continues to be in sinus mechanism. He has underwent cardiac catheterization in 2017 and at that time there was no evidence of high-grade stenosis. He continues to be in sinus mechanism without atrial fibrillation. His brain MRI showed no acute process, his echo is pending Medications: Aspirin, Lipitor 40 mg daily, Plavix 75 mg daily, metoprolol 25 mg twice a day, Nitropaste Review of Systems: Respiratory: No history of asthma, bronchitis or recent cough. GI: No nausea or vomiting . No history of peptic ulcer disease. No recent GI bleed. : No hematuria or dysuria. Nervous System: He has a prior history of stroke Physical Examination: 71-year-old male, alert oriented no apparent distress ,Blood pressure 138/70, Heart rate 59 Head: Normocephalic. Eyes: Sclerae nonicteric. Neck: Good carotid upstroke, no bruit, no jugular venous distention. Lungs: Clear to auscultation. Heart: Regular rate and rhythm, S1-S2, no S3, no rub. Systolic ejection murmur. Abdomen: Soft nontender, positive bowel sounds no organomegaly. Extremities: No edema, intact distal pulses. Labs: BUN 19, creatinine 0.6, potassium 3.8 Impression: 1. History of CVA 2. Chest discomfort with no evidence of enzymatic or EKG changes, moderate CAD in 2017 3. History of hyperlipidemia 4. History of hypertension Plan: 1. Review the echocardiogram once it is done 2. Proceed with myocardial perfusion imaging tomorrow 3. Changed to oral nitrate 4. Follow renal functions 5. Depending on his progress further recommendations will be made Objective - Vital Signs Vital signs: Vital Signs Temp 97.4 F L 05/26/22 11:47 Pulse 59 L 05/26/22 11:47 Resp 16 05/26/22 11:47 BP 138/72 05/26/22 11:47 Pulse Ox 96 05/26/22 11:47 FiO2 Intake & Output 05/25/22 05/26/22 05/26/22 18:59 06:59 18:59 Intake Total 485 Balance 485 Weight 102.1 kg Intake: Oral 485 Other: Voiding Method Toilet Toilet # Voids 1 # Bowel Movements 1 - Labs CBC & Chem 7: 05/26/22 06:35 05/26/22 06:35 Labs: Abnormal Lab Results - Last 24 Hours (Table) 05/24/22 05/25/22 05/26/22 Range/Units 18:21 18:56 06:20 Hgb (13.0-17.5) gm/dL Hct (39.0-53.0) % Creatinine (0.66-1.25) mg/dL Glucose (74-99) mg/dL POC Glucose (mg/dL) 222 H 168 H (70-110) mg/dL Hemoglobin A1c 9.1 H (0.0-6.0) % Total Protein (6.3-8.2) g/dL 05/26/22 05/26/22 05/26/22 Range/Units 06:35 06:35 11:45 Hgb 12.8 L (13.0-17.5) gm/dL Hct 38.5 L (39.0-53.0) % Creatinine 0.61 L (0.66-1.25) mg/dL Glucose 174 H (74-99) mg/dL POC Glucose (mg/dL) 179 H (70-110) mg/dL Hemoglobin A1c (0.0-6.0) % Total Protein 6.2 L (6.3-8.2) g/dL
[2022-05-26] MEDS ORDERED: CAFFEINE CITRATE 60 MG/3 ML VIAL IV PRN (14:06)
[2022-05-26] MEDS ORDERED: AMINOPHYLLINE 500 MG/20 ML VIAL IV PRN (14:06)
[2022-05-26 17:00] LABS: Glucose,Whole Blood 210 mg/dL (70-110)
[2022-05-26] MEDS: SODIUM CHLORIDE 0.9% 1,000 ML IV SCH (17:14)
[2022-05-26] MEDS ORDERED: DEXTROSE 50% SYRINGE 50 ML IVP PRN ×2 (17:22)
--- NOTE | 2022-05-26 17:38 | CA ---
Transthoracic Echo Report Name: Mark Marr Age: 71 Gender: M : 1950 Exam Date: 05/26/2022 14:08 Exam Location: [place] [facility] Ht (in): 70 Wt (lb): 225 Ordering Physician: Jessica Hanson Attending/Referring Phys: [id number], Valentin [employer] Carolynn Niño RDCS Procedure CPT: Indications: CVA Cardiac Hx: Technical Quality: Fair Contrast 1: Total Dose (mL): Contrast 2: Total Dose (mL): MEASUREMENTS (Male / Female) Normal Values 2D ECHO LV Diastolic Diameter PLAX 5.4 cm 4.2 - 5.9 / 3.9 - 5.3 cm LV Systolic Diameter PLAX 3.6 cm IVS Diastolic Thickness 1.6 cm 0.6 - 1.0 / 0.6 - 0.9 cm LVPW Diastolic Thickness 1.5 cm 0.6 - 1.0 / 0.6 - 0.9 cm LV Relative Wall Thickness 0.6 LA Volume 43.3 cm??? 18 - 58 / 22 - 52 cm??? M-MODE Aortic Root Diameter MM 4.0 cm LA Systolic Diameter MM 3.8 cm LA Ao Ratio MM 1.0 AV Cusp Separation MM 1.8 cm DOPPLER AV Peak Velocity 98.8 cm/s AV Peak Gradient 3.9 mmHg AV Mean Velocity 71.6 cm/s AV Mean Gradient 2.2 mmHg AV Velocity Time Integral 20.4 cm LVOT Peak Velocity 72.9 cm/s LVOT Peak Gradient 2.1 mmHg MV Area PHT 2.7 cm??? Mitral E Point Velocity 68.2 cm/s Mitral A Point Velocity 51.2 cm/s Mitral E to A Ratio 1.3 MV Deceleration Time 283.4 ms MV E' Velocity 7.7 cm/s Mitral E to MV E' Ratio 8.9 FINDINGS Left Ventricle Moderately increased left ventricular wall thickness. No obvious regional wall motion abnormalities. Left ventricular ejection fraction is estimated at 50-55 %. Right Ventricle Normal right ventricular size and function. Right ventricular systolic pressure within normal limits. Right Atrium Normal right atrial size. Left Atrium Normal left atrial size. No evidence for an atrial septal defect. Mitral Valve Structurally normal mitral valve. Mild mitral annular calcification. Mitral valve thickened. Mild mitral regurgitation. Aortic Valve No aortic valve stenosis or regurgitation. Aortic valve not well visualized. Tricuspid Valve Structurally normal tricuspid valve. Trace to mild tricuspid regurgitation. Pulmonic Valve Trace pulmonic regurgitation. Pericardium No pericardial effusion. Aorta Normal size aortic root and proximal ascending aorta. CONCLUSIONS Normal LV systolic function Mild mitral regurgitation Previewed by: Dr. Markus Mehta MD (Electronically Signed) Final Date: 26 May 2022 17:37
[2022-05-26] MEDS: INSULIN ASPART (NovoLOG) 100 UNIT/ML VIAL SQ SCH ×2 (17:42→20:37)
[2022-05-26 20:27] LABS: Glucose,Whole Blood 187 mg/dL (70-110)
[2022-05-26] MEDS: MIRTAZAPINE 15 MG TAB PO SCH (20:37)
[2022-05-26] MEDS: DOCUSATE 100 MG CAP PO SCH (20:37)
--- NOTE | 2022-05-27 05:23 | PN ---
PROGRESS NOTE DATE OF SERVICE: 05/26/2022 SUBJECTIVE: This 71-year-old gentleman, who was admitted with weakness of the left side of the body is being closely monitored. The patient apparently refused tPA from the hospital and brain MRI has been done today. Neurology is following the patient closely. The patient also had some emotional outburst also. The MRI which is reviewed personally, showed scattered periventricular and subcortical white matter changes as well as white matter changes in the brainstem. No acute intracranial process was apparent. PAST MEDICAL HISTORY: Reviewed. REVIEW OF SYSTEMS: Could not be taken. The patient has change in mental status. CURRENT MEDICATIONS: Reviewed, which include Plavix doses and rest of medication noted. OBJECTIVE: VITAL SIGNS: Pulse is 64, blood pressure NTD, respirations 17. HEENT: Conjunctivae normal. NECK: No jugular venous distention. CARDIOVASCULAR: S1, S2. RESPIRATIONS: Breath sounds diminished at the bases. ABDOMEN: Soft. LEGS: No edema. NERVOUS SYSTEM: Diffusely weak. LABS: Reviewed. ASSESSMENT: 1. Possible acute stroke involving the right hemisphere causing left-sided weakness. 2. 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 3. History of previous multiple strokes. 4. History of chest pain. 5. Diabetes type 2. 6. Cerebrovascular accident history. 7. Gastroesophageal reflux disease. 8. Multiple medical issues. RECOMMENDATIONS: Recommend to continue current medications and symptomatic treatment. Continue with antiplatelet agents. Continue with the Lipitor. Continue rest of medications. Continue neurovascular workup, neurology consultation. Prognosis extremely guarded because of multiple complex medical issues. See orders for details. Further recommendations to follow. MMODL / IJN: [id number] / MTDD
[2022-05-27] MEDS ORDERED: REGADENOSON 0.4 MG/5 ML SYRINGE IV PRN (06:00)
[2022-05-27 06:12] LABS: Glucose,Whole Blood 168 mg/dL (70-110)
[2022-05-27 07:41] LABS: Basophils % (A) 1 %; Eosinophils # (A) 0.2 k/uL (0-0.7); Eosinophils % (A) 3 %; HCT 38.9 % (39.0-53.0); HGB 13.1 gm/dL (13.0-17.5); Lymphocytes # (A) 1.9 k/uL (1.0-4.8); Lymphocytes % (A) 32 %; MCHC 33.8 g/dL (31.0-37.0); MCV 88.8 fL (80.0-100.0); Mean Platelet Volume 7.7; Monocytes # (A) 0.4 k/uL (0-1.0); Monocytes % (A) 6 %; Neutrophils # (A) 3.3 k/uL (1.3-7.7); Neutrophils % (A) 56 %; Platelet Count 218 k/uL (150-450); RBC 4.38 m/uL (4.30-5.90); RDW 13.6 % (11.5-15.5)
[2022-05-27 07:53] LABS: ALT 31 U/L (4-49); AST 33 U/L (17-59); African American GFR (CKD) >90 (>60 ml/min/1.73 sqM); Alkaline Phosphatase 51 U/L (38-126); Anion Gap 7 mmol/L; Blood Urea Nitrogen 21 mg/dL (9-20); Calcium 8.7 mg/dL (8.4-10.2); Carbon Dioxide 23 mmol/L (22-30); Chloride 106 mmol/L (98-107); Glucose 172 mg/dL (74-99); Non-African American GFR(CKD) >90 (>60 ml/min/1.73 sqM); Potassium 3.8 mmol/L (3.5-5.1); Sodium 136 mmol/L (137-145); Total Bilirubin 0.6 mg/dL (0.2-1.3); Total Protein 6.5 g/dL (6.3-8.2)
[2022-05-27] MEDS: INSULIN ASPART (NovoLOG) 100 UNIT/ML VIAL SQ SCH ×4 (08:01→20:30)
[2022-05-27 08:10] VITALS: RESP 16
--- NOTE | 2022-05-27 09:41 | CA ---
Lexiscan Nuclear Stress Test Report Name: Mark Marr Exam Date: 05/27/2022 09:00 Exam Location: [facility] Ht (in): 72 Wt (lb): 225 BSA: 2.24 Ordering Phys: Elle Almonte MD Referring Phys: ELISEO, Technologist: Dino Rich Age: 71 Gender: M : 1950 Procedure CPT: Indications: Reflex order-Stress test ICD-10 Codes: Patient History: Chest Pain and Shortness of breath Medications: Meds past 24 hrs: Pretest Chest Pain: STRESS TEST Lexiscan Protocol Exercise Duration (min:sec): 02:[address] Depressions (mm): Angina Score: Hong Score: Resting HR (bpm): 60 Peak HR (bpm): 88 Resting BP (mmHg): 121 / 73 Peak BP (mmHg): 145 / 63 MPHR: 151 Target HR: 128 % MPHR: 58 METS: 1.0 Total Dose: Peak Dose: Atropine: Double Product: 66343 BP Response: Stress Termination: infusion complete Stress Symptoms: No chest pain or symptoms Stress Summary: ECG ANALYSIS Resting ECG: Normal sinus rhythm normal axis normal intervals Stress ECG: No evidence of ST segment depression CONCLUSIONS Negative stress test by EKG criteria Cardiolite portion of the stress test will be reported separately Dr. Markus Mehta MD (Electronically Signed) Final Date: 27 May 2022 09:40
[2022-05-27] MEDS: HEPARIN SODIUM,PORCINE/PF 5,000 UNIT/0.5 ML SYRINGE SQ SCH ×2 (10:57→20:47)
[2022-05-27] MEDS: CLOPIDOGREL 75 MG TAB PO SCH (10:58)
[2022-05-27] MEDS: ASPIRIN 81 MG PO SCH (10:58)
[2022-05-27] MEDS: METOPROLOL TARTRATE 25 MG TAB PO SCH ×2 (10:58→20:47)
[2022-05-27] MEDS: ATORVASTATIN 40 MG TAB PO SCH (10:58)
[2022-05-27] MEDS: PANTOPRAZOLE 40 MG TABLET PO SCH (10:58)
[2022-05-27] MEDS: ISOSORBIDE MONONITRATE ER 30 MG TAB.ER.24H PO SCH (10:58)
[2022-05-27] MEDS: DULoxetine HCL 60 MG CAPSULE.DR PO SCH (10:58)
[2022-05-27] MEDS: GABAPENTIN 300 MG CAP PO SCH ×4 (10:58→20:47)
[2022-05-27] MEDS: HYDROcodone/APAP 10-325MG 1 EACH TAB PO PRN ×2 (11:01→17:04)
--- NOTE | 2022-05-27 11:13 | P.PN ---
Subjective Progress Note Date: 05/26/22 Patient was seen for a follow-up. Patient offers no complaints. He is feeling much better. Multiple family members were also present. Patient denies any headache or dizziness. Objective - Vital Signs Vital signs: Vital Signs Temp 97.5 F L 05/26/22 16:00 Pulse 64 05/26/22 16:00 Resp 16 05/26/22 16:00 BP 150/87 05/26/22 16:00 Pulse Ox 94 L 05/26/22 16:00 FiO2 Intake & Output 05/25/22 05/26/22 05/26/22 18:59 06:59 18:59 Intake Total 485 118 Balance 485 118 Weight 102.1 kg Intake: Oral 485 118 Other: Voiding Method Toilet Toilet # Voids 1 # Bowel Movements 1 - Exam Examination nonfocal. - Labs CBC & Chem 7: 05/27/22 06:51 05/27/22 06:51 Labs: Abnormal Lab Results - Last 24 Hours (Table) 05/24/22 05/25/22 05/26/22 Range/Units 18:21 18:56 06:20 Hgb (13.0-17.5) gm/dL Hct (39.0-53.0) % Creatinine (0.66-1.25) mg/dL Glucose (74-99) mg/dL POC Glucose (mg/dL) 222 H 168 H (70-110) mg/dL Hemoglobin A1c 9.1 H (0.0-6.0) % Total Protein (6.3-8.2) g/dL 05/26/22 05/26/22 05/26/22 Range/Units 06:35 06:35 11:45 Hgb 12.8 L (13.0-17.5) gm/dL Hct 38.5 L (39.0-53.0) % Creatinine 0.61 L (0.66-1.25) mg/dL Glucose 174 H (74-99) mg/dL POC Glucose (mg/dL) 179 H (70-110) mg/dL Hemoglobin A1c (0.0-6.0) % Total Protein 6.2 L (6.3-8.2) g/dL 05/26/22 Range/Units 16:58 Hgb (13.0-17.5) gm/dL Hct (39.0-53.0) % Creatinine (0.66-1.25) mg/dL Glucose (74-99) mg/dL POC Glucose (mg/dL) 210 H (70-110) mg/dL Hemoglobin A1c (0.0-6.0) % Total Protein (6.3-8.2) g/dL Assessment and Plan Assessment: * Possible stroke TIA manifesting with slurred speech, left-sided weakness, this seems to have resolved. Current NIH stroke scale is 0. Patient declined TPA. * Previous history of stroke/TIA 2 (2006, 2010), with no residual deficits. * Hypertension * Diabetes * Hyperlipidemia * Marijuana use * Chronic low back pain Plan: * MRI of the brain without contrast revealed scattered periventricular and subcortical white matter changes as well as white matter changes in the brainstem. Findings are nonspecific, but may be related to chronic white matter ischemic change. No acute ischemic process. I personally reviewed MRI , agree with the findings. * 2-D echo with bubble study to rule out PFO, revealed moderately increased left ventricular wall thickness. Left ventricular ejection fraction is estimated at 50-55%. Left atrial size is normal. No aortic valve stenosis or regurgitation. Mild MR. * CTA head and neck showed: No stenosis. * Patient was on aspirin 325 mg daily. Due to possible aspirin failure, we will start Plavix 75 mg daily. Suggest dual antiplatelet medication with aspirin 81 mg and Plavix 75 mg for 21 days. Then may stop aspirin and continue Plavix indefinitely. * Fasting a.m. lipid panel with cholesterol 91, LDL 22, HDL 40 and triglycerides 143. * Hemoglobin A1c 9.0, suggesting poorly controlled diabetes. Recommend optimize control of diabetes to target A1c <7.0 * Optimize blood pressure control to normotensive level. * Telemetry monitoring rule out any arrhythmia * For chest pain, cardiology on board. * DVT prophylaxis: Heparin 5000 units subcu every 8 hours * Neurologically clear.
--- NOTE | 2022-05-27 11:26 | NM ---
EXAMINATION TYPE: NM stress lexiscan cardiolite DATE OF EXAM: 05/27/2022 COMPARISON: NONE HISTORY: Chest pain TECHNIQUE: After the intravenous administration of 10.2 mCi Tc 99m Sestamibi - Cardiolite resting SP ECT images acquired 75 minutes post injection. At peak stress 25.6 mCi Tc 99m Sestamibi - Stress images obtained 35 minutes post injection The patient was stressed with 0.4mg Lexiscan. FINDINGS: There is a large fixed defect along the inferior wall on both rest and stress images. No reversible stress defects on Spect images. There is some mild dyskinesia of the inferior wall near the cardiac apex. Remaining wall motion appea rs normal. Ejection fraction is calculated to be 60 %. IMPRESSION: 1. Large fixed defect along the inferior wall compatible with prior infarct. Correlate with EKG bermudez es. 2. Mild dyskinesia of the inferior wall near the cardiac apex. 3. Ejection fraction remains normal with 60%.
[2022-05-27 11:50] LABS: Glucose,Whole Blood 155 mg/dL (70-110)
[2022-05-27 13:07] VITALS: BMI 32.3
--- NOTE | 2022-05-27 14:37 | P.PN ---
Subjective Progress Note Date: 05/27/22 The patient is a 71-year-old male who was admitted with right-sided weakness, chest discomfort. He is feeling better today. His weakness is better. He has no further chest discomfort. He continues to be in sinus mechanism. He has underwent cardiac catheterization in 2017 and at that time there was no evidence of high-grade stenosis. He continues to be in sinus mechanism without atrial fibrillation. His brain MRI showed no acute process, his echo is pending Medications: Aspirin, Lipitor 40 mg daily, Plavix 75 mg daily, metoprolol 25 mg twice a day, Nitropaste 05/27/2022 She was seen and examined resting comfortably in bed. He is overall feeling better. Denies any chest discomfort. His weakness has resolved. His speech has improved. He underwent echocardiogram with Doppler study that showed normal LV systolic function with no segmental wall motion abnormalities. Lexiscan MPI showed large fixed defect involving the inferior wall with a normal LV systolic function, likely represents soft tissue attenuation in the setting of a normal EF and no segmental wall motion abnormalities noted on echocardiogram. Objective - Vital Signs Vital signs: Vital Signs Temp 98.6 F 05/27/22 04:00 Pulse 75 05/27/22 11:04 Resp 16 05/27/22 11:04 BP 120/74 05/27/22 11:04 Pulse Ox 96 05/27/22 11:04 FiO2 Intake & Output 05/26/22 05/27/22 05/27/22 18:59 06:59 18:59 Intake Total 358 118 Balance 358 118 Weight 102.1 kg Intake: Oral 358 118 Other: Voiding Method Toilet Toilet Toilet # Voids 1 - Exam Head: Normocephalic. Eyes: Sclerae nonicteric. Neck: Good carotid upstroke, no bruit, no jugular venous distention. Lungs: Clear to auscultation. Heart: Regular rate and rhythm, S1-S2, no S3, no rub. Systolic ejection murmur. Abdomen: Soft nontender, positive bowel sounds no organomegaly. Extremities: No edema, intact distal pulses. - Labs CBC & Chem 7: 05/27/22 06:51 05/27/22 06:51 Labs: Abnormal Lab Results - Last 24 Hours (Table) 05/26/22 05/26/22 05/26/22 Range/Units 06:35 16:58 20:25 Hct (39.0-53.0) % Sodium (137-145) mmol/L BUN (9-20) mg/dL Creatinine (0.66-1.25) mg/dL Glucose (74-99) mg/dL POC Glucose (mg/dL) 210 H 187 H (70-110) mg/dL Hemoglobin A1c 9.0 H (0.0-6.0) % 05/27/22 05/27/22 05/27/22 Range/Units 06:10 06:51 06:51 Hct 38.9 L (39.0-53.0) % Sodium 136 L (137-145) mmol/L BUN 21 H (9-20) mg/dL Creatinine 0.64 L (0.66-1.25) mg/dL Glucose 172 H (74-99) mg/dL POC Glucose (mg/dL) 168 H (70-110) mg/dL Hemoglobin A1c (0.0-6.0) % 05/27/22 Range/Units 11:48 Hct (39.0-53.0) % Sodium (137-145) mmol/L BUN (9-20) mg/dL Creatinine (0.66-1.25) mg/dL Glucose (74-99) mg/dL POC Glucose (mg/dL) 155 H (70-110) mg/dL Hemoglobin A1c (0.0-6.0) % Assessment and Plan Assessment: #1 symptoms of chest discomfort concerning for angina, troponins negative 3 #2 CVA, recurrent #3 moderate CAD #4 hypertension #5 hyperlipidemia #6 diabetes Plan: From cardiology's perspective stress tests findings of a fixed defect likely represents soft tissue attenuation. At this time patient may be discharged home from a cardiac standpoint and follow up in the office as an outpatient. 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 Patient was seen and examined.
[2022-05-27 16:55] LABS: Glucose,Whole Blood 304 mg/dL (70-110)
[2022-05-27 20:16] LABS: Glucose,Whole Blood 105 mg/dL (70-110)
[2022-05-27] MEDS: SODIUM CHLORIDE 0.9% 1,000 ML IV SCH ×2 (20:39→21:41)
[2022-05-27] MEDS: DOCUSATE 100 MG CAP PO SCH (20:47)
[2022-05-27] MEDS: MIRTAZAPINE 15 MG TAB PO SCH (20:47)
--- NOTE | 2022-05-27 21:27 | P.PN ---
Subjective Progress Note Date: 05/27/22 Patient was seen for a follow-up. Patient offers no complaints. He is feeling much better. Multiple family members were also present. Patient denies any headache or dizziness. He feels symptoms have resolved. Objective - Vital Signs Vital signs: Vital Signs Temp 98.6 F 05/27/22 04:00 Pulse 75 05/27/22 11:04 Resp 16 05/27/22 11:04 BP 120/74 05/27/22 11:04 Pulse Ox 96 05/27/22 11:04 FiO2 Intake & Output 05/26/22 05/27/22 05/27/22 18:59 06:59 18:59 Intake Total 358 118 Balance 358 118 Weight 102.1 kg Intake: Oral 358 118 Other: Voiding Method Toilet Toilet Toilet # Voids 1 - Exam Patient's mental status, speech and language functions are normal. Cranial nerves are normal. Visual rojo are full, face is symmetric. On muscle some testing, there is no pronator drift and the strength is normal in arms and legs. Sensations are equal. No ataxia. - Labs CBC & Chem 7: 05/27/22 06:51 05/27/22 06:51 Labs: Abnormal Lab Results - Last 24 Hours (Table) 05/26/22 05/26/22 05/26/22 Range/Units 06:35 16:58 20:25 Hct (39.0-53.0) % Sodium (137-145) mmol/L BUN (9-20) mg/dL Creatinine (0.66-1.25) mg/dL Glucose (74-99) mg/dL POC Glucose (mg/dL) 210 H 187 H (70-110) mg/dL Hemoglobin A1c 9.0 H (0.0-6.0) % 05/27/22 05/27/22 05/27/22 Range/Units 06:10 06:51 06:51 Hct 38.9 L (39.0-53.0) % Sodium 136 L (137-145) mmol/L BUN 21 H (9-20) mg/dL Creatinine 0.64 L (0.66-1.25) mg/dL Glucose 172 H (74-99) mg/dL POC Glucose (mg/dL) 168 H (70-110) mg/dL Hemoglobin A1c (0.0-6.0) % 05/27/22 Range/Units 11:48 Hct (39.0-53.0) % Sodium (137-145) mmol/L BUN (9-20) mg/dL Creatinine (0.66-1.25) mg/dL Glucose (74-99) mg/dL POC Glucose (mg/dL) 155 H (70-110) mg/dL Hemoglobin A1c (0.0-6.0) % Assessment and Plan Assessment: * Possible TIA manifesting with slurred speech, left-sided weakness, this seems to have resolved. Current NIH stroke scale is 0. Patient declined TPA. * Previous history of stroke/TIA 2 (2006, 2010), with no residual deficits. * Hypertension * Diabetes * Hyperlipidemia * Marijuana use * Chronic low back pain Plan: * MRI of the brain without contrast revealed scattered periventricular and david bcortical white matter changes as well as white matter changes in the brainstem. Findings are nonspecific, but may be related to chronic white matter ischemic change. No acute ischemic process. I personally reviewed MRI, agree with the findings. * 2-D echo revealed moderately increased left ventricular wall thickness. Left ventricular ejection fraction is estimated at 50-55%. Left atrial size is normal. No aortic valve stenosis or regurgitation. Mild MR. * CTA head and neck showed: No stenosis. * Patient was on aspirin 325 mg daily. Due to possible aspirin failure, we will start Plavix 75 mg daily. Suggest dual antiplatelet medication with aspirin 81 mg and Plavix 75 mg for 21 days. Then may stop aspirin and continue Plavix indefinitely. * Fasting a.m. lipid panel with cholesterol 91, LDL 22, HDL 40 and triglycerides 143. Continue Lipitor 40 mg daily. * Hemoglobin A1c 9.0, suggesting poorly controlled diabetes. Recommend optimize control of diabetes to target A1c <7.0 * Optimize blood pressure control to normotensive level. * Telemetry monitoring rule out any arrhythmia * For chest pain, cardiology on board. * DVT prophylaxis: Heparin 5000 units subcu every 8 hours * Neurologically clear for discharge.
--- NOTE | 2022-05-28 05:41 | PN ---
PROGRESS NOTE DATE OF SERVICE: 05/27/2022 SUBJECTIVE: This 71-year-old gentleman, who was admitted with acute stroke, also had some pseudobulbar features. MRI and bubble study pending at this time. No chest pain. No palpitation. OBJECTIVE: VITAL SIGNS: Pulse is 75, blood pressure 120/74, respirations 16. HEENT: Conjunctivae normal. Oral mucosa moist. CARDIOVASCULAR: S1, S2. RESPIRATION: Breath sounds diminished at the bases. ABDOMEN: Soft. NERVOUS SYSTEM: Diffusely weak. LABORATORY DATA: Reviewed. ASSESSMENT: 1. Acute stroke involving the right hemisphere causing left-sided weakness. 2. 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 3. History of previous multiple strokes. 4. History of chest pain. 5. Diabetes mellitus, type 2. 6. Cerebrovascular accident history. 7. Multiple medical issues. RECOMMENDATIONS: I recommend to continue current management and symptomatic treatment. Continue with antiplatelet agents. Otherwise, closely follow. Neurology is planning MRI and bubble study, and we will continue to monitor. Further recommendations to follow. MMODL / IJN: [id number] /
[2022-05-28 06:03] LABS: Glucose,Whole Blood 197 mg/dL (70-110)
[2022-05-28] MEDS: INSULIN ASPART (NovoLOG) 100 UNIT/ML VIAL SQ SCH (06:06)
[2022-05-28 07:58] VITALS: BP 119/65; PULSE 60; TEMP 97.6
[2022-05-28] MEDS: ATORVASTATIN 40 MG TAB PO SCH (08:39)
[2022-05-28] MEDS: GABAPENTIN 300 MG CAP PO SCH (08:39)
[2022-05-28] MEDS: ISOSORBIDE MONONITRATE ER 30 MG TAB.ER.24H PO SCH (08:39)
[2022-05-28] MEDS: DULoxetine HCL 60 MG CAPSULE.DR PO SCH (08:39)
[2022-05-28] MEDS: PANTOPRAZOLE 40 MG TABLET PO SCH (08:39)
[2022-05-28] MEDS: ASPIRIN 81 MG PO SCH (08:39)
[2022-05-28] MEDS: CLOPIDOGREL 75 MG TAB PO SCH (08:40)
[2022-05-28] MEDS: METOPROLOL TARTRATE 25 MG TAB PO SCH (08:40)
[2022-05-28] MEDS: HEPARIN SODIUM,PORCINE/PF 5,000 UNIT/0.5 ML SYRINGE SQ SCH (08:40)
--- NOTE | 2022-05-28 20:52 | P.DS ---
Providers Date of admission: 05/25/22 02:14 Attending physician: Africa Ragsdale Consults: 05/25/22 02:13 Consult Physician Routine Consulting Provider: Marlee Rogers Consult Reason/Comments: cva Do you want consulting provider notified?: Yes 05/25/22 02:14 Consult Physician Routine Consulting Provider: Elle Almonte Consult Reason/Comments: chest pain Do you want consulting provider notified?: Yes Primary care physician: Latanya Izaguirre Hospital Course: Diagnoses: Stroke with slurred speech and left hemiparesis, significantly improved and cleared by neurologist for discharge Chest pain with abnormal stress test showing fixed defect with normal ejection fraction 50-55% thought secondary to ventricular wall attenuation History of depression Hypertension Diabetes mellitus Hospital course: This is a pleasant 71 years old male with multiple medical problems presents with similar speech and left hemiparesis concerning for stroke, evaluated by neurologist and his MRI of the brain showing no acute infarction, ejection fraction showing 50-55% and patient was on aspirin 325 mg at home, diseases which by neurologist and to aspirin 81 mg and Plavix 75 mg 3 weeks and then stop aspirin and continue with Plavix, patient informed about these recommendation and he agrees also risk and benefits are explained for him and he verbalized understanding and acceptance Cardiology saw the patient, he has abnormal stress test with fixed defect but ejection fraction is normal therefore coat fitter but no further recommendation but to continue with aspirin and Plavix and cleared him for discharge. On the day of discharge patient states that his slurred speech and left hemiparesis improved, he denies chest pain, he denies any other new complaints, no dyspnea, no GI or urinary complaints. No fever. Rest of vital stable. Patient states that he is walking with no difficulty Patient is seen for to go home today Patient was cleared for discharge by coat fitter and neurologist Problems and management plan were discussed with the patient and he verbalized understanding and acceptance Patient was found stable and can be discharged home in guarded prognosis however he needs follow-up as an outpatient. Patient was instructed to follow up with PCP Dr. Izaguirre within one week and patient agrees Patient was instructed to follow-up with the neurologist in 1-[address] Magaña and Dr. Vilchis are suggested for him, also TO follow-up with his on neurologist Dr. Cardoso and he said he has his contact information Patient was instructed to follow up with his coat fitter Dr. Almonte in 1-2 weeks and operations management professionals Dr. Peacock/Dr. Tavares in 1-2 weeks and he agrees to call and make appointment as today's weekend Physical exam Gen: patient is a AAOx3, no distress CVS: S1-S2, RRR, no murmur Lungs: B/L CTA, no wheezing Abdomen: soft, no distention, no tenderness, positive bowel sounds Extremity: no leg edema or induration Neuro: Very mild slurred speech, rest of cranial nerves are grossly intact, mild left hemiparesis improving. Sensation is intact. Time spent more than 35 minutes Patient Condition at Discharge: Serious Plan - Discharge Summary Discharge Rx Participant: No New Discharge Prescriptions: New Metoprolol Tartrate [Lopressor] 25 mg PO BID #60 tab Isosorbide Mononitrate ER [Imdur] 30 mg PO DAILY #30 tab INSULIN ASPART (NovoLOG) [NovoLOG (formulary)] 0 unit SQ ACHS each Clopidogrel [Plavix] 75 mg PO DAILY #30 tab Continue Docusate [Colace] 200 mg PO HS DULoxetine HCL [Cymbalta] 60 mg PO DAILY metFORMIN HCL [Glucophage] 1,000 mg PO BID Atorvastatin [Lipitor] 40 mg PO DAILY Gabapentin [Neurontin] 300 mg PO QID Omeprazole [PriLOSEC] 40 mg PO DAILY Aspirin [Adult Low Dose Aspirin EC] 81 mg PO DAILY 21 Days #21 tab Mirtazapine [Remeron] 15 mg PO HS Discharge Medication List Docusate [Colace] 200 mg PO HS 05/31/16 [History] DULoxetine HCL [Cymbalta] 60 mg PO DAILY 12/28/17 [History] Atorvastatin [Lipitor] 40 mg PO DAILY 05/25/22 [History] Gabapentin [Neurontin] 300 mg PO QID 05/25/22 [History] Mirtazapine [Remeron] 15 mg PO HS 05/25/22 [History] Omeprazole [PriLOSEC] 40 mg PO DAILY 05/25/22 [History] metFORMIN HCL [Glucophage] 1,000 mg PO BID 05/25/22 [History] Aspirin [Adult Low Dose Aspirin EC] 81 mg PO DAILY 21 Days #21 tab 05/28/22 [Rx] Clopidogrel [Plavix] 75 mg PO DAILY #30 tab 05/28/22 [Rx] INSULIN ASPART (NovoLOG) [NovoLOG (formulary)] 0 unit SQ ACHS each 05/28/22 [Rx] Isosorbide Mononitrate ER [Imdur] 30 mg PO DAILY #30 tab 05/28/22 [Rx] Metoprolol Tartrate [Lopressor] 25 mg PO BID #60 tab 05/28/22 [Rx] Follow up Appointment(s)/Referral(s): Elle Almonte MD [STAFF PHYSICIAN] - 2 Weeks Abe Ignacio MD [REFERRING] - 2 Weeks (endocrnilogist for your Diabetes mellitus) [facility], [NON-STAFF] - Oz Magaña MD [Medical Doctor] - 1 Week (neurologist ) Karley Peacock MD [STAFF PHYSICIAN] - 2 Weeks (endocrnilogist for your Diabetes mellitus) Latanya Izaguirre MD [Primary Care Provider] - 1-2 days Patient Instructions/Handouts: Transient Ischemic Attack (DC) Activity/Diet/Wound Care/Special Instructions: heart healthy diet, low carbohydrate diet activity is restricted till you see your doctor we recommend to check your glucose four times per day , before each meal and at bed time,keep the results in a log book and bring it to your doctor on your appointment date if your glucose is less than 70 or more than 400 then call 911 and come to emergency room Due to possible aspirin failure, we will start Plavix 75 mg daily. Suggest dual antiplatelet medication with aspirin 81 mg and Plavix 75 mg for 21 days. Then may stop aspirin and continue Plavix indefinitely. Discharge Disposition: HOME WITH HOME HEALTH SERVICES
== END 2022-05-28 09:54 | disposition home health service (06) | DRG 65 ==
LOC: EC 23:36 → 3SCARD 05-25 02:14
PROVIDERS: ADMIT Hospitalist; ATTEND Hospitalist
DX: I63.9 Cerebral infarction, unspecified (principal); G81.94 Hemiplegia, unspecified affecting left nondominant side; R29.710 NIHSS score 10; R47.81 Slurred speech; K21.9 Gastro-esophageal reflux disease without esophagitis; I25.119 Atherosclerotic heart disease of native coronary artery with unspecified angina pectoris; F48.2 Pseudobulbar affect; I10 Essential (primary) hypertension; E78.5 Hyperlipidemia, unspecified; E11.9 Type 2 diabetes mellitus without complications; G89.29 Other chronic pain; M54.50 Low back pain, unspecified; F17.290 Nicotine dependence, other tobacco product, uncomplicated; R45.1 Restlessness and agitation; F12.90 Cannabis use, unspecified, uncomplicated; K59.00 Constipation, unspecified; F32.A Depression, unspecified; Z20.822 Contact with and (suspected) exposure to COVID-19; Z53.29 Procedure and treatment not carried out because of patient's decision for other reasons; Z79.899 Other long term (current) drug therapy; Z79.84 Long term (current) use of oral hypoglycemic drugs; Z79.82 Long term (current) use of aspirin; Z86.73 Personal history of transient ischemic attack (TIA), and cerebral infarction without residual deficits
CPT/HCPCS: 36415; 70450; 70496; 70498; 70551; 71045; 78452; 80053; 80061; 81003; 83036; 84484; 85025; 85610; 85730; 87635; 93005; 93017; 93306; 96360; 96361; 96372; 99291

== ENCOUNTER 2022-06-03 20:10 | Emergency (ER) | payer MEDICARE ==
[2022-06-03 20:16] VITALS: TEMP 97.7
[2022-06-03] MEDS ORDERED: KETOROLAC 15 MG/ML 1 ML VIAL IVP STA (20:25)
--- NOTE | 2022-06-03 20:34 | ED ---
Chest Pain HPI - General Chief Complaint: Chest Pain Stated Complaint: chest pain Time Seen by Provider: 06/03/22 20:17 Source: patient, family, RN notes reviewed, old records reviewed Mode of arrival: wheelchair Limitations: no limitations - History of Present Illness Initial Comments: 62-year-old male history diabetes history of recent admission from May 25 through the for evaluation of possible stroke and cardiac disease who presents back here tonight with complaints of midsternal chest pain burning in nature sharp as severe as 02/19 to this 03/21 he states he gets worse when he moves his arms or bends over. He denies any cough fevers chills sweats shortness of breath palpitations or other symptoms. He did have a neurological evaluation on his last admission he presented apparently was slurred speech and left hemiparesis on MRI apparently no acute stroke was seen. His symptoms had resolved prior to discharge additionally he did have a cardiac workup including a stress test which apparently indicated a fixed lesion and medical management was to be performed. The current complaints of modifying factors at this time MD Complaint: chest pain - Related Data Home Medications Medication Instructions Recorded Confirmed Docusate [Colace] 200 mg PO HS 05/31/16 06/03/22 DULoxetine HCL [Cymbalta] 60 mg PO DAILY 12/28/17 06/03/22 Atorvastatin [Lipitor] 40 mg PO DAILY 05/25/22 06/03/22 Gabapentin [Neurontin] 300 mg PO QID 05/25/22 06/03/22 Mirtazapine [Remeron] 15 mg PO HS 05/25/22 06/03/22 Omeprazole [PriLOSEC] 40 mg PO DAILY 05/25/22 06/03/22 metFORMIN HCL [Glucophage] 1,000 mg PO BID 05/25/22 06/03/22 HYDROcodone/APAP 10-325MG [[place] 1 tab PO QID PRN 06/03/22 06/03/22 10-325] Previous Rx's Medication Instructions Recorded Aspirin [Adult Low Dose Aspirin EC] 81 mg PO DAILY 21 Days #21 tab 05/28/22 Clopidogrel [Plavix] 75 mg PO DAILY #30 tab 05/28/22 Isosorbide Mononitrate ER [Imdur] 30 mg PO DAILY #30 tab 05/28/22 Metoprolol Tartrate [Lopressor] 25 mg PO BID #60 tab 05/28/22 Allergies Allergy/AdvReac Type Severity Reaction Status Date / Time No Known Allergies Allergy Verified 06/03/22 21:04 Review of Systems ROS Statement: Those systems with pertinent positive or pertinent negative responses have been documented in the HPI. ROS Other: All systems not noted in ROS Statement are negative. EKG Findings - EKG Results: EKG: interpreted by ERMD (EKG evaluated by me shows a sinus rhythm a 91 appear interval 175 QRS duration 89 daily since QTC 341/390 borderline left exodeviation minimal voltage criteria for LVH this is compared with EKG dated 1213 1214 and 12:15 of this year showing similar configuration's.) Past Medical History Past Medical History: CVA/TIA, Diabetes Mellitus, GERD/Reflux Additional Past Medical History / Comment(s): HX OF CVA WITH LEFT ARM WEAKNESS, HX OF TIA'S. STATES HE HAS NO HX OF SEIZURES BUT THEY STARTED HIM ON SEIZURE MEDS., CONSTIPATION. History of Any Multi-Drug Resistant Organisms: None Reported Past Surgical History: Back Surgery Additional Past Surgical History / Comment(s): BACK SURGERY WITH PINS. Past Anesthesia/Blood Transfusion Reactions: No Reported Reaction Past Psychological History: Depression Smoking Status: Current every day smoker Past Alcohol Use History: None Reported Past Drug Use History: Marijuana - Past Family History Mother Family Medical History: CVA/TIA, Diabetes Mellitus Father Family Medical History: Diabetes Mellitus, Myocardial Infarction ([place]) General Exam - General Exam Comments Initial Comments: This is a well-developed well-nourished awake alert oriented 4 male Limitations: no limitations General appearance: alert, anxious Head exam: Present: atraumatic, normocephalic, normal inspection Eye exam: Present: normal appearance, PERRL, EOMI. Absent: scleral icterus, conjunctival injection, periorbital swelling ENT exam: Present: normal exam, mucous membranes moist Neck exam: Present: normal inspection, full ROM, other (No stridor JVD or bruits). Absent: tenderness, meningismus, lymphadenopathy Respiratory exam: Present: normal lung sounds bilaterally. Absent: respiratory distress, wheezes, rales, rhonchi, stridor, chest wall tenderness (No apparent tenderness palpation across the chest wall) Cardiovascular Exam: Present: regular rate, normal rhythm, normal heart sounds. Absent: systolic murmur, diastolic murmur, rubs, gallop, clicks GI/Abdominal exam: Present: soft, normal bowel sounds. Absent: distended, tenderness, guarding, rebound, rigid Extremities exam: Present: normal inspection, full ROM, normal capillary refill. Absent: tenderness, pedal edema, joint swelling, calf tenderness Back exam: Present: normal inspection Neurological exam: Present: alert, oriented X3, CN II-XII intact Psychiatric exam: Present: normal affect, anxious Skin exam: Present: warm, dry, intact, normal color. Absent: rash Course Vital Signs 06/03/22 06/03/22 20:13 20:26 Temperature 97.7 F Pulse Rate 82 79 Respiratory 16 24 Rate Blood Pressure 132/80 142/90 O2 Sat by Pulse 98 96 Oximetry - Reevaluation(s) Reevaluation #1: 06/03/22 20:47 The patient's care will be endorsed to Dr. Delong at our shift change Reevaluation #2: 06/03/22 21:20 Reevaluation patient finds no further change the pain he experiences seems very reproducible with movement of his torso and extremities. Additionally he states he has vomiting every day is been going on for a long time over a year. Chest Pain MDM - MDM Imaging interpreted by me shows no evidence of acute processes. I did discuss [employer] the patient family members the pain is musculoskeletal in origin does not appear to be cardiac or pulmonary in nature it is chest wall in nature. We did discuss options including heat and [id number] pain medication steroids were considered however the patient is diabetic and to this we do not want to place him on steroids. We did discuss the patient with healing processes a follow-up with his doctor return when necessary I also did recommend GI follow- up for the persistent vomi Disposition Clinical Impression: Chest wall syndrome Disposition: HOME SELF-CARE Condition: Good Instructions (If sedation given, give patient instructions): Costochondritis (ED), Chest Wall Pain (ED) Additional Instructions: Warm compresses, [id number] pain medication, follow-up with her doctor Is patient prescribed a controlled substance at d/c from ED?: No Referrals: Latanya Izaguirre MD [Primary Care Provider] - 1-2 days Decision Date: 06/03/22 Decision Time: 21:24
[2022-06-03 20:56] LABS: Basophils % (A) 1 %; Eosinophils # (A) 0.3 k/uL (0-0.7); Eosinophils % (A) 4 %; HCT 37.9 % (39.0-53.0); Lymphocytes # (A) 2.3 k/uL (1.0-4.8); Lymphocytes % (A) 31 %; MCH 29.9 pg (25.0-35.0); MCHC 34.4 g/dL (31.0-37.0); MCV 86.9 fL (80.0-100.0); Mean Platelet Volume 7.8; Monocytes # (A) 0.4 k/uL (0-1.0); Monocytes % (A) 6 %; Neutrophils # (A) 4.1 k/uL (1.3-7.7); Neutrophils % (A) 56 %; Platelet Count 233 k/uL (150-450); RBC 4.36 m/uL (4.30-5.90); RDW 13.6 % (11.5-15.5); WBC 7.3 k/uL (3.8-10.6)
[2022-06-03 21:03] LABS: ALT 33 U/L (4-49); AST 32 U/L (17-59); African American GFR (CKD) >90 (>60 ml/min/1.73 sqM); Albumin 4.6 g/dL (3.5-5.0); Alkaline Phosphatase 75 U/L (38-126); Anion Gap 12 mmol/L; Blood Urea Nitrogen 25 mg/dL (9-20); Calcium 9.2 mg/dL (8.4-10.2); Carbon Dioxide 21 mmol/L (22-30); Chloride 104 mmol/L (98-107); Glucose 211 mg/dL (74-99); Lipase 69 U/L (23-300); Magnesium 1.6 mg/dL (1.6-2.3); Non-African American GFR(CKD) >90 (>60 ml/min/1.73 sqM); Potassium 4.3 mmol/L (3.5-5.1); Sodium 137 mmol/L (137-145); Total Bilirubin 0.5 mg/dL (0.2-1.3); Total Protein 7.4 g/dL (6.3-8.2)
--- NOTE | 2022-06-03 21:05 | XR ---
EXAMINATION TYPE: XR chest 2V DATE OF EXAM: 06/03/2022 COMPARISON: 05/25/2022 HISTORY: Chest pain TECHNIQUE: FINDINGS: There is no heart failure nor confluent pneumonic infiltrate. Costophrenic angles are clear . There are chest leads. No hilar masses. The bony thorax is intact. IMPRESSION: No active cardiopulmonary disease. No change.
[2022-06-03 21:07] LABS: INR 0.9 (<1.2); Partial Thromboplastin Time 24.1 sec (22.0-30.0)
[2022-06-03 21:35] VITALS: BP 148/86; PULSE 86; RESP 16
== END 2022-06-03 21:35 | disposition home or self-care (01) ==
LOC: EC 20:10 → SUPCPDRO 20:10 → EC 21:35
DX: R07.1 Chest pain on breathing (principal); Z86.73 Personal history of transient ischemic attack (TIA), and cerebral infarction without residual deficits; E11.9 Type 2 diabetes mellitus without complications; K21.9 Gastro-esophageal reflux disease without esophagitis; F32.A Depression, unspecified; F17.200 Nicotine dependence, unspecified, uncomplicated; F12.90 Cannabis use, unspecified, uncomplicated; Z79.84 Long term (current) use of oral hypoglycemic drugs; Z79.899 Other long term (current) drug therapy
CPT/HCPCS: 36415; 93005; 85379; 83880; 80053; 83690; 83735; 84484; 85025; 85610; 85730; 71046; 99285; 96374; J1885